=== PATIENT | male | born 1940 | race Caucasian/White ===

== ENCOUNTER 2017-01-09 16:38 | Emergency (ER) | payer MEDICARE, OTHER ==
[2012-12-25 12:46] VITALS: BMI 39.2
[2017-01-09 21:17] LABS: BASOPHILS 0.3 % (0.0-2.0); EOSINOPHILS 3.4 % (0-7); HEMATOCRIT 44.4 % (42.0-54.0); IMMATURE GRANULOCYTES 0.3 % (0-5); LYMPHOCYTES 24.1 % (15-50); MCH 32.8 pg (26.0-34.0); MCHC 33.8 g/dL (31.0-37.0); MCV 97.2 fL (80.0-100.0); MEAN PLATELET VOLUME 10.1 fL (7.4-10.4); MONOCYTES 6.9 % (2-11); RBC 4.57 10x6/uL (4.20-6.10); RDW 12.9 % (11.5-14.5); WBC 6.3 10x3/uL (4.8-10.8)
[2017-01-09 21:25] LABS: INR 0.95 (0.85-1.17); PROTIME 12.5 SECONDS (11.6-15.0)
[2017-01-09 21:26] LABS: PLATELET COUNT 138 10x3/uL (130-400)
[2017-01-09 21:49] LABS: ALBUMIN 3.6 g/dL (3.4-5.0); ALKALINE PHOSPHATASE 111 U/L (46-116); ALT (SGPT) 37 U/L (10-68); BILIRUBIN - TOTAL 0.73 mg/dL (0.2-1.3); CALC OSMOLALITY 287 mosm/kg (275-300); CALCIUM 8.2 mg/dL (8.5-10.1); CARBON DIOXIDE 29.5 mmol/L (21.0-32.0); CHLORIDE - SERUM 103 mmol/L (98-107); CREATININE - SERUM 0.8 mg/dL (0.6-1.3); GLUCOSE 133 mg/dL (74-106); POTASSIUM - SERUM 3.9 mmol/L (3.5-5.1); PROTEIN - SERUM 6.7 g/dL (6.4-8.2); SODIUM 141 mmol/L (136-145); UREA NITROGEN 26 mg/dL (7-18); eGFR NON AFRICAN AMERICAN > 90 mL/min (90-120)
[2017-01-09 21:58] LABS: PRO BNP 1001 pg/mL (0-450)
== END 2017-01-09 22:39 | disposition home or self-care (01) ==
LOC: D.ER 16:38
PROVIDERS: Emergency Medicine
DX: S52.042A Displaced fracture of coronoid process of left ulna, initial encounter for closed fracture (principal); X58.XXXA Exposure to other specified factors, initial encounter; Y93.89 Activity, other specified; Y92.89 Other specified places as the place of occurrence of the external cause; I80.8 Phlebitis and thrombophlebitis of other sites; I10 Essential (primary) hypertension; E11.9 Type 2 diabetes mellitus without complications; K21.9 Gastro-esophageal reflux disease without esophagitis

== ENCOUNTER 2019-03-21 09:18 | Inpatient (IN) | payer MEDICARE, OTHER ==
[~2019-03-21] VITALS: Ht 180.3 cm; Wt 129.7 kg
[2019-03-21 10:09] LABS: BASOPHILS 0.2 % (0-2); EOSINOPHILS 0.6 % (0-7); HEMATOCRIT 36.5 % (42.0-54.0); HEMOGLOBIN 12.4 g/dL (13.5-17.5); IMMATURE GRANULOCYTES 0.2 % (0-5); LYMPHOCYTES 10.3 % (15-50); MCH 32.3 pg (26.0-34.0); MCV 95.1 fL (80.0-100.0); MEAN PLATELET VOLUME 10.6 fL (7.4-10.4); MONOCYTES 5.9 % (2-11); NEUTROPHILS 82.8 % (40-80); PLATELET COUNT 129 10x3/uL (130-400); RBC 3.84 10x6/uL (4.20-6.10); RDW 14.2 % (11.5-14.5); WBC 9.7 10x3/uL (4.8-10.8)
[2019-03-21 10:22] LABS: ALBUMIN 3.2 g/dL (3.4-5.0); ALKALINE PHOSPHATASE 216 U/L (46-116); ALT (SGPT) 43 U/L (10-68); BILIRUBIN - TOTAL 1.29 mg/dL (0.2-1.3); CALC OSMOLALITY 288 mosm/kg (275-300); CALCIUM 9.6 mg/dL (8.5-10.1); CARBON DIOXIDE 20.9 mmol/L (21.0-32.0); CHLORIDE - SERUM 101 mmol/L (98-107); CREATININE - SERUM 2.4 mg/dL (0.6-1.3); GLUCOSE 150 mg/dL (74-106); POTASSIUM - SERUM 4.4 mmol/L (3.5-5.1); PROTEIN - SERUM 7.2 g/dL (6.4-8.2); SODIUM 135 mmol/L (136-145); UREA NITROGEN 56 mg/dL (7-18); eGFR NON AFRICAN AMERICAN 28 mL/min (90-120)
[2019-03-21 10:38] LABS: CKMB 1.4 U/L (0.0-3.6); CREATINE KINASE 45 UL (21-232); TROPONIN-I 0.054 ng/mL (0.000-0.060)
[2019-03-21 11:17] LABS: AMORPHOUS SEDIMENT <1+ /lpf (NONE SEEN); APPEARANCE SL CLDY (CLEAR); BACTERIA MANY /hpf (NONE SEEN); BILIRUBIN NEGATIVE (NEGATIVE); COLOR YELLOW (YELLOW); EPITHELIAL CELLS 0-5 /hpf (0-5); GLUCOSE NEGATIVE (NEGATIVE); HYALINE CAST 0-5 /lpf (NONE SEEN); KETONE NEGATIVE (NEGATIVE); MUCUS <1+ /lpf (NONE SEEN); NITRITE NEGATIVE (NEGATIVE); PROTEIN 2+ mg/dL (NEGATIVE); RED CELLS - URINE 0-5 /hpf (0-5); SPECIFIC GRAVITY 1.015 (1.005-1.020); WHITE CELLS - URINE OCC /hpf (0-5)
[2019-03-21 11:45] LABS: INR 1.22 (0.85-1.17); PROTIME 15.4 SECONDS (11.6-15.0)
--- NOTE | 2019-03-21 12:33 | NUR ---
EKG completed at 3590 03-21-19 by GENEVIEVE
[2019-03-21 12:46] VITALS: BP 100/67
--- NOTE | 2019-03-21 12:47 | NUR ---
pt NSR on monitor - HR improved and currently at 98
--- NOTE | 2019-03-21 14:21 | MORECARE ---
CASE MANAGEMENT DISCHARGE SUMMARY PATIENT: ANGEL RAI N UNIT: [id number] ADM DATE: 03/21/19 AGE: 78 : 38 SEX: M ROOM/BED: D.2124 AUTHOR: VANI ROJO PHYSICIAN: REFERRING PHYSICIAN: MATT NICHOLS MD DATE OF SERVICE: 03/21/19 Discharge Plan Patient Name: ANGEL RAI Facility: [facility]:[place] : 1940 Planned Disposition: Home Health Service Anticipated Discharge Date: 03/23/19 Discharge Date: Expected LOS: 2 Initial Reviewer: [email or web address] Initial Review Date: 03/21/2019 Generated: 03/21/19 3:21 pm DCPIA - Discharge Planning Initial Assessment Updated by [id number]: Maya Cunningham on 03/21/19 2:20 pm * Is the patient Alert and Oriented? Yes * How many steps to enter\exit or inside your home? * PCP Dr. Rodríguez * [facility] * Preadmission Environment Home with Family * ADLs Partial Dependent * Partial ADLs (Assistance needed) Ambulation Bathing Transfers * Equipment Rolling Walker * List name and contact numbers for known caregivers / representatives who currently or will assist patient after discharge: Kaci Nicole [facility] - [phone] Héctor Edward [facility] [phone] * Verbal permission to speak to the caregivers and representatives has been obtained from the patient. Yes * Community resources currently utilized Meals on Wheels * Additional services required to return to the preadmission environment? Yes * Can the patient safely return to the preadmission environment? Yes * Has this patient been hospitalized within the prior 30 days at any hospital? No Patient Name: ANGEL RAI Page 47771 at 1421 All edits/amendments must be made on the electronic document DICTATION DATE: 03/21/191420 DIAPER MACHINE TENDER: ADRIANA 03/21/19 142 RPT#: [id number] DC DATE: STATUS: ADM IN [facility] [address] [place] [address] END OF REPORT
--- NOTE | 2019-03-21 14:30 | MORECARE ---
CASE MANAGEMENT DISCHARGE SUMMARY PATIENT: ANGEL RAI UNIT: [id number] ADM DATE: 03/21/19 AGE: 78 : 38 SEX: M ROOM/BED: D.6750 AUTHOR: DARREL,DOC PHYSICIAN: REFERRING PHYSICIAN: MATT NICHOLS MD DATE OF SERVICE: 03/21/19 Discharge Plan Patient Name: ANGEL RAI Facility: [facility]:[place] : 1940 Planned Disposition: Home Health Service Anticipated Discharge Date: 03/23/19 Discharge Date: Expected LOS: 2 Initial Reviewer: [email or web address] Initial Review Date: 03/21/2019 Generated: 03/21/19 3:30 pm DCP- Discharge Planning Updated by [email or web address]: Maya Cunningham on 03/21/19 1:[address] Patient Name: ANGEL RAI Admission Status: ER Accout number: [id number] Admission Date: 03-21-2019 : 1940 Admission Diagnosis: Attending: MATT DEGROOT Current LOS: 1 Anticipated DC Date: 03-23-2019 Planned Disposition: Home Health Service Primary Insurance: MEDICARE A & B Discharge Planning Comments: CM met with patient and his daughter, Kaci Nicole, to complete initial dc planning assessment. CM educated patient on the CM role and verbal consent given by patient to complete assessment. CM verified patient's address, phone number, and emergency contact phone numbers. Patient lives at home with his grandson. He reports he has required increased assistance june past few weeks. Pateint's daughter stated she felt like the patient would benefit from home health services. List of HH Agencies provided to the patient and his daughter. MONA form signed by patient's daughter for [facility] as their first choice and [facility] as their 2nd choice. Signed form placed in chart and signed form given to patient. Informed both patient and his daughter that a order from MD will have to be given for cm to arrange HH at [place]. At discharge patient plans to return home and feels this is a safe discharge. Patient denied further known discharge needs at this time. . Patient reports his daughter or his grandson will transport him home at time of discharge.CM will continue to follow and will assist as needed with dc plans/needs. Container Maker: Maya Cunningham RN, [facility] DCPIA - Discharge Planning Initial Assessment Updated by [email or web address]: Maya Cunningham on 03/21/19 2:20 pm * Is the patient Alert and Oriented? Yes * How many steps to enter\exit or inside your home? * PCP Dr. Rodríguez * Pharmacy [facility] [address] * Preadmission Environment Home with Family * ADLs Partial Dependent * Partial ADLs (Assistance needed) Ambulation Bathing Transfers * Equipment Rolling Walker * List name and contact numbers for known caregivers / representatives who currently or will assist patient after discharge: Kaci Nicole [facility] - [phone] H[facility]ctor [facility] - [phone] * Verbal permission to speak to the caregivers and representatives has been obtained from the patient. Yes * Community resources currently utilized Meals on Wheels * Additional services required to return to the preadmission environment? Yes * Can the patient safely return to the preadmission environment? Yes * Has this patient been hospitalized within the prior 30 days at any hospital? No Last DP export: 03/21/19 1:21 p Patient Name: ANGEL RAI Page [phone] at 1430 All edits/amendments must be made on the electronic document DICTATION DATE: 03/21/191428 CAB WORKER: ADRIANA 03/21/191428 RPT#: [id number] DC DATE: STATUS: ADM IN [facility] [address] [place] [address] END OF REPORT
--- NOTE | 2019-03-21 15:00 | NUR ---
NEW PATIENT ADMIT FROM ER VIA HOSPITAL BED AND ER PERSONNEL. DTR AT BEDSIDE. PATIENT IS AWAKE, ALERT AND ORIENTED X 4. IV 20 G TO RT FA SL AND LT UPPER ARM 22 G SL. O2 PER NC AT 2.5L/MIN. ADMISSION HISTORY AND ADMISSION ASSESSMENT COMPLETED. PATIENT HAS LARGE REDDENED AREA TO GROIN AND STAGE 2 X 2 PRESSURE ULCERS TO COCCYX. PATIENT DENIES ANY NEEDS OR PAIN. WILL CONTINUE WITH PLAN OF CARE. SR UP X 2 BED IN LOW POSITION AND CALL LIGHT IN REACH.
[2019-03-21 15:02] VITALS: BP 110/70; BMI 40.8
[2019-03-21 16:30] VITALS: BP 97/59
[2019-03-21 17:52] LABS: % SATURATION 20 % (15-55); IRON 46 ug/dl (35-150); TOTAL IRON BIND CAPACITY 230 ug/dl (260-445); UNSAT IRON BIND CAPACITY 184 ug/dl (150-375)
--- NOTE | 2019-03-21 18:26 | NUR ---
PATIENT HAD COMPLETE BED BATH AND LINEN CHANGE. PATIENT UP TO BR WITH ASST. PATIENT TOLERATED WELL. PATIENT RESTING COMFORTABLY. PATIENT DENIES ANY NEEDS OR PAIN. WILL CONTINUE TO MONITOR. SR UP X 2 BED IN LOW POSTION AND CALL LIGHT IN REACH.
[2019-03-21 20:00] VITALS: BP 99/50
[2019-03-22] VITALS: BP 97/55
--- NOTE | 2019-03-22 02:06 | NUR ---
UP WITH ASSIST TO BSC.
[2019-03-22 04:00] VITALS: BP 100/63
[2019-03-22 07:15] LABS: BASOPHILS 0.2 % (0-2); EOSINOPHILS 1.5 % (0-7); HEMATOCRIT 34.1 % (42.0-54.0); HEMOGLOBIN 11.4 g/dL (13.5-17.5); IMMATURE GRANULOCYTES 0.3 % (0-5); LYMPHOCYTES 14.8 % (15-50); MCH 32.1 pg (26.0-34.0); MCHC 33.4 g/dL (31.0-37.0); MCV 96.1 fL (80.0-100.0); MONOCYTES 6.8 % (2-11); NEUTROPHILS 76.4 % (40-80); PLATELET COUNT 121 10x3/uL (130-400); RBC 3.55 10x6/uL (4.20-6.10); RDW 14.4 % (11.5-14.5); WBC 9.3 10x3/uL (4.8-10.8)
--- NOTE | 2019-03-22 07:31 | NUR ---
ASSESSMENT DONE. DENIES NEEDS.
[2019-03-22 07:36] VITALS: BP 107/66
[2019-03-22 07:49] LABS: ALBUMIN 2.8 g/dL (3.4-5.0); ANION GAP 15.6 mmol/L (8-16); BILIRUBIN - TOTAL 0.92 mg/dL (0.2-1.3); CALCIUM 9.1 mg/dL (8.5-10.1); CARBON DIOXIDE 21.8 mmol/L (21.0-32.0); CREATININE - SERUM 2.4 mg/dL (0.6-1.3); MAGNESIUM - SERUM 1.7 mg/dL (1.8-2.4); POTASSIUM - SERUM 4.4 mmol/L (3.5-5.1); PROTEIN - SERUM 6.5 g/dL (6.4-8.2)
--- NOTE | 2019-03-22 09:53 | NUR ---
I have reviewed this patient and I concur with the Shift Assessment completed by the Licensed Practical Nurse today this shift.
[2019-03-22 10:35] VITALS: BMI 39.3
[2019-03-22 11:24] VITALS: BP 109/64
--- NOTE | 2019-03-22 13:21 | NUR ---
Pt arrived with 2 - stage 2 pressure injuries on coccyx/buttocks. Left measures 2cm x 2cm and right 1.5cm x 1.5cm. There is an open area on #2 toe on right foot with scaly patch of dry skin on #4 toe. Bilateral lower extremities are discolored, edematous and scaly. Heels are intact but boggy. Recommendations: Mepilex sacral dressing to bottom Antibiotic ointment to #2 toe Turn/reposition every 2 hours Float heels Protect bony prominences Wound care will continue monitoring.
--- NOTE | 2019-03-22 14:00 | NUR ---
16F FOLY CATH PLACED FOR I&O PER DR ORDERS.
[2019-03-22 14:07] VITALS: Ht 180.3 cm; Wt 129.7 kg
--- NOTE | 2019-03-22 15:13 | NUR ---
SCDS APPLIED TO PT. BILATERALLY ORDERED.
[2019-03-22 15:39] VITALS: BP 98/69
--- NOTE | 2019-03-22 17:38 | NUR ---
WITHOUT CHANGES OR DISTRESS NOTED AT THIS TIME. DENIES NEEDS
[2019-03-22 20:00] VITALS: BP 97/62
--- NOTE | 2019-03-22 20:01 | NUR ---
INITIAL ROUNDS COMPLETED AT 1909 HRS. PT RESTING WITH EYES CLOSED. RESP EVEN AND REGULAR. ASSESSMENT COMPLETED AT 1939 HRS. CAF PER CM HR 73. PT ALERT AND ORIENTED TO PERSON, PLACE AND TIME. LINDSAY. IV TO L HAND WITH CARDIZEM DRIP AT 10MG.HE. IV PATENT. IV TO RFA SL. LUNGS DIMINISHED IN BASES BILAT. LINDSAY. MEPILEX TO BILAT BUTTOCKS. 2-3+ PITTING EDEMA NOTED TO BILAT LOWER EXTREMITIES. LOWER LEGS RED. SCD'S IN USE. SCD'S REMOVED AND SKIN INSPECTED. NO BREAKDOWN NOTED. RED AREA NOTED TO 2ND TOE OF R FOOT. MONTILLA DRAINING SMALL AMOUNTS OF YELLOW URINE. SR UP X2, CALL LIGHT WITHIN REACH.
--- NOTE | 2019-03-22 20:58 | NUR ---
VSS. PM MEDS APPLIED PER ORDERS. SR UP X2, CALL LIGHT WITHIN REACH.
--- NOTE | 2019-03-22 22:00 | NUR ---
PT RESTING WITH EYES CLOSED. RESP EVEN AND REGULAR. SR UP X2, CALL LIGHT WITHIN REACH.
--- NOTE | 2019-03-22 23:47 | NUR ---
PT RESITNG WITH EYES CLOSED. RESP EVEN AND REGULAR. SR UP X2,CALL LIGHT WITHIN REACH AND BED ALARM ON.
[2019-03-23] VITALS: BP 103/63
--- NOTE | 2019-03-23 00:19 | NUR ---
PT TURNED ON TO L SIDE. SR UP X2, CALL LIGHT WITHIN REACH.
--- NOTE | 2019-03-23 02:15 | NUR ---
PT RESTING WITH EYES CLOSED. RESP EVEN AND REGULAR. SR UP X2, CALL LIGHT WITHIN REACH.
[2019-03-23 04:00] VITALS: BP 114/65
[2019-03-23 05:55] LABS: BASOPHILS 0.1 % (0-2); EOSINOPHILS 3.1 % (0-7); HEMATOCRIT 33.2 % (42.0-54.0); IMMATURE GRANULOCYTES 0.5 % (0-5); LYMPHOCYTES 18.3 % (15-50); MCH 31.7 pg (26.0-34.0); MCHC 33.1 g/dL (31.0-37.0); MCV 95.7 fL (80.0-100.0); MEAN PLATELET VOLUME 10.8 fL (7.4-10.4); MONOCYTES 7.2 % (2-11); NEUTROPHILS 70.8 % (40-80); PLATELET COUNT 119 10x3/uL (130-400); RBC 3.47 10x6/uL (4.20-6.10); RDW 14.1 % (11.5-14.5); WBC 8.1 10x3/uL (4.8-10.8)
--- NOTE | 2019-03-23 06:02 | NUR ---
VSS THROUGHOUT NIGHT. CAF PER CM. PT DENIED ANY DISCOMFORT. NEEDS MET;WILL CONTINUE TO MONITOR.
[2019-03-23 06:18] LABS: ALBUMIN 2.6 g/dL (3.4-5.0); ANION GAP 15.8 mmol/L (8-16); BILIRUBIN - TOTAL 0.83 mg/dL (0.2-1.3); CARBON DIOXIDE 22.4 mmol/L (21.0-32.0); CREATININE - SERUM 2.1 mg/dL (0.6-1.3); MAGNESIUM - SERUM 1.8 mg/dL (1.8-2.4); POTASSIUM - SERUM 4.2 mmol/L (3.5-5.1); PROTEIN - SERUM 6.5 g/dL (6.4-8.2)
--- NOTE | 2019-03-23 07:10 | NUR ---
REPORT RECIEVED FROM METAL DRESSER AND PATIENT CARE ASSUMED. PATIENT LAYING IN BED ON BACK WITH EYES CLOSED AND BREATHING EVENLY. VSS. WILL CONTINUE WITH PLAN OF CARE. SR UP X 2 BED IN LOW POSITION AND CALL LIGHT IN REACH.
[2019-03-23 08:00] VITALS: BP 128/71
--- NOTE | 2019-03-23 10:00 | NUR ---
PATIENT IS STABLE AND VSS. ASSESSMENT COMPLETED. PATIENT DENIES ANY NEEDS OR PAIN. DTR AT BEDSIDE. WILL CONTINUE TO MONITOR. SR UP X 2 BED IN LOW POSITION AND CALL LIGHT IN REACH.
[2019-03-23 12:00] VITALS: BP 128/77
--- NOTE | 2019-03-23 14:08 | NUR ---
PATIENT UP TO BS COMMODE WITH TWO PERSON ASSIST. PATIENT HAD MODERATE AMT BROWN, FORMED BM. PATIENT CLEANED AND CALMOSEPTINE APPLIED TO BUTTOCKS. BED LINENS CHANGED. PATIENT BACK TO BED AND RESTING COMFORTABLY. WILL CONTINUE TO MONITOR. SR UP X 2 BED IN LOW POSITION AND CALL LIGHT IN REACH.
[2019-03-23 14:09] LABS: FOLATE (FOLIC ACID) - SERUM >20.0 ng/mL (>3.0)
[2019-03-23 16:30] VITALS: BP 109/70
[2019-03-23 20:00] VITALS: BP 133/67
--- NOTE | 2019-03-23 21:27 | NUR ---
INITIAL ROUNDS COMPLETED AT 1915 HRS. PT DENIED ANY DISCOMFORT. ASESSMENT COMPLETED AT 1945HRS. VSS. CAF PER CM HR 79. O2 2LNC LUNGS DIMINISHED IN BASES BILAT. IV TO L HAND WITH CARDIEM AT 10MG/HR (10CC). IV PATENT. IV TO RFA SL. ABD LARGE WITH ACTIVE BS NOTED. L HAND WITH 1+ EDEMA. IV CHANGED TO RFA. 1-2+ PITTING EDEMA TO BILAT LOWER LEGS. SCD'S REMOVED AND SKIN INSPECTED. NO BREAKDOWN NOTED. LOWER LEGS RED IN COLOR. MONTILLA DRAINING DARK COLORED URINE. MEPILEX NOTED TO COCCYX/BUTTOCKS CLEAN, DRY AND INTACT. RED AREAS NOTED UNDER ABD FOLDS AND GROIN AREA. PM MEDS GIVEN. PT THEN ASSSITED TO BSC. BED LINENS CHANGED AT THAT TIME. WILL CONTINUE TO MONITOR. CALL LIGHT WITHIN REACH.
--- NOTE | 2019-03-23 21:55 | NUR ---
PT HAD SMALL BM. BED BATH DONE. PT STATED HE FELT MUCH IMPROVED. REPOSITIONED IN BED FOR COMFORT. SR UP X2,CALL LIGHT WITHIN REACH AND BED ALARM ON.
--- NOTE | 2019-03-23 23:52 | NUR ---
PT AWAKE; DENIES ANY DISCOMFORT. SR UP X2, CALL LIGHT WITHIN REACH.
[2019-03-24] VITALS (7 sets, daily range): BP systolic 118–133; BP diastolic 67–79
--- NOTE | 2019-03-24 03:17 | NUR ---
PT RESTING WITH EYES CLOSED. RESP EVEN AND REGULAR. SR UP X2, CALL LIGHT WITHIN REACH.
[2019-03-24 05:47] LABS: BASOPHILS 0.1 % (0-2); EOSINOPHILS 3.6 % (0-7); HEMATOCRIT 34.1 % (42.0-54.0); HEMOGLOBIN 11.3 g/dL (13.5-17.5); IMMATURE GRANULOCYTES 0.6 % (0-5); LYMPHOCYTES 17.1 % (15-50); MCH 31.7 pg (26.0-34.0); MCHC 33.1 g/dL (31.0-37.0); MCV 95.5 fL (80.0-100.0); MEAN PLATELET VOLUME 10.7 fL (7.4-10.4); MONOCYTES 7.5 % (2-11); NEUTROPHILS 71.1 % (40-80); PLATELET COUNT 122 10x3/uL (130-400); RBC 3.57 10x6/uL (4.20-6.10); RDW 13.9 % (11.5-14.5); WBC 7.9 10x3/uL (4.8-10.8)
[2019-03-24 06:21] LABS: ALBUMIN 2.5 g/dL (3.4-5.0); ANION GAP 15.2 mmol/L (8-16); BILIRUBIN - TOTAL 0.8 mg/dL (0.2-1.3); CALCIUM 8.6 mg/dL (8.5-10.1); CARBON DIOXIDE 24.4 mmol/L (21.0-32.0); CREATININE - SERUM 1.6 mg/dL (0.6-1.3); MAGNESIUM - SERUM 1.7 mg/dL (1.8-2.4); POTASSIUM - SERUM 3.6 mmol/L (3.5-5.1); PROTEIN - SERUM 6.5 g/dL (6.4-8.2)
--- NOTE | 2019-03-24 06:45 | NUR ---
VSS THROUGHOUT NIGHT. CAF PER CM. PT DENIED ANY DISCOMFORT. NEEDS MET; WILL CONTINUE TO MONITOR.
--- NOTE | 2019-03-24 10:00 | NUR ---
ALERT AND ORIENTED X4. SITTING UP IN BED. CARDIZEM DRIP DISCONTINUED PER ORDER. CARDIZEM 60mg PO ADMINISTERED ORDERED. MONTILLA DRAINING AT BEDSIDE. CLOTS SEEN IN MONTILLA TUBING. MONTILLA PATENT. DENIES ANY NEEDS AT THIS TIME. CONTINUE PLAN OF CARE AND SAFETY PRECAUTIONS. CONTROLLED AFIB ON TELEMETRY.
--- NOTE | 2019-03-24 17:21 | NUR ---
ALERT AND ORIENTED X4. ASSIST BACK TO BED FROM BEDSIDE COMMODE. MEPOLEX DRESSING ON BUTTOCKS CHANGED. CONTROLLED AFIB ON TELEMETRY. DENIES ANY OTHER NEEDS. CONTINUE PLAN OF CARE AND SAFETY PRECAUTIONS.
--- NOTE | 2019-03-24 19:36 | NUR ---
RECEIVED REPORT, WILL ASSUME CARE OF PT, DENIES ANY NEEDS AT THIS TIME, BED IS LOW, SRX2, CALL LIGHT IN REACH, WILL CONTINUE PLAN OF CARE
--- NOTE | 2019-03-25 00:04 | NUR ---
PT ASKING FOR LIGHT TO BE TURNED OUT
--- NOTE | 2019-03-25 01:40 | NUR ---
I have reviewed this patient and I concur with the Shift Assessment completed by the Licensed Practical Nurse today this shift.
[2019-03-25 03:45] VITALS: BP 129/81
[2019-03-25 05:33] LABS: BASOPHILS 0.1 % (0-2); EOSINOPHILS 3.9 % (0-7); HEMOGLOBIN 11.5 g/dL (13.5-17.5); LYMPHOCYTES 17.6 % (15-50); MCH 31.9 pg (26.0-34.0); MCHC 33.8 g/dL (31.0-37.0); MCV 94.4 fL (80.0-100.0); MONOCYTES 5.9 % (2-11); NEUTROPHILS 71.5 % (40-80); PLATELET COUNT 131 10x3/uL (130-400); RDW 13.9 % (11.5-14.5); WBC 7.1 10x3/uL (4.8-10.8)
[2019-03-25 05:41] LABS: ALBUMIN 2.6 g/dL (3.4-5.0); ANION GAP 12.7 mmol/L (8-16); BILIRUBIN - TOTAL 0.77 mg/dL (0.2-1.3); CARBON DIOXIDE 26.8 mmol/L (21.0-32.0); CREATININE - SERUM 1.3 mg/dL (0.6-1.3); MAGNESIUM - SERUM 1.7 mg/dL (1.8-2.4); POTASSIUM - SERUM 3.5 mmol/L (3.5-5.1); PROTEIN - SERUM 6.7 g/dL (6.4-8.2)
[2019-03-25 07:56] VITALS: BP 144/71
--- NOTE | 2019-03-25 10:07 | CN ---
PATIENT NAME:ANGEL RAI MEDICAL RECORD: [id number] : [birth year] LOCATION:D. D.2124 ADMIT DATE: 03/21/19 ACCOUNT: [id number] CONSULTING PHYSICIAN: NEERU FARNSWORTH MD REFERRING PHYSICIAN: MTAT NICHOLS MD DATE OF CONSULTATION: 03/24/2019 HISTORY OF PRESENT ILLNESS: An 78-year-old gentleman with history of atrial arrhythmias and atrial fibrillation, not felt to be NOAC candidate. He has history of diastolic dysfunction. Admitted with malaise, fatigue, and skin breakdown in the coccyx area. Noted to be in atrial flutter with rapid ventricular response. We are asked to see him concerning his cardiovascular status. PAST MEDICAL HISTORY: Includes; 1. History of hypertension. 2. Hyperlipidemia. 3. Obstructive sleep apnea. 4. Atrial flutter/fibrillation. ALLERGIES: EGGS. PHYSICAL EXAMINATION: GENERAL: Elderly gentleman, in no acute distress, appears stated age. VITAL SIGNS: Blood pressure 133/77. Pulse currently 70 and regular. HEENT: Normocephalic and atraumatic. NECK: No JVD or bruit. HEART: Irregular. Rate is controlled. II/ systolic ejection murmur. LUNGS: Fairly good air excursion. ABDOMEN: Soft and nontender. EXTREMITIES: Pulses are 1+. There is no edema. IMPRESSION: Atrial fibrillation. Rates are much improved after Cardizem has been started. We will start this orally. Echocardiogram shows preserved LV systolic function. Given history of skin breakdown, lack of mobility, etc., agree not a candidate for NOAC in [place]. Thank you for the consultation. TRANSINT:[id number] Voice Confirmation ID: [id number] DOCUMENT ID: [id number] NEERU FARNSWORTH MD at 1007 CC: [id number] DICTATION DATE: 03/24/19 0955 BRADLEY LINEBACKER CREWMEMBER: 03/24/19 1642 ADM IN [place] [id number] [place] [address]
[2019-03-25] MEDS ORDERED: ZYLOPRIM300 MG PO (10:33)
[2019-03-25] MEDS ORDERED: GLUCOPHAGE850 MG PO (10:34)
[2019-03-25] MEDS ORDERED: LIPITOR40 MG PO (10:34)
[2019-03-25] MEDS ORDERED: GLUCOPHAGE500 MG PO (10:35)
[2019-03-25] MEDS ORDERED: K-TAB10 MEQ PO (10:35)
[2019-03-25] MEDS ORDERED: OMEPRAZOLE40 MG PO (10:35)
[2019-03-25] MEDS ORDERED: ATIVAN0.5 MG PO (10:36)
[2019-03-25 11:41] VITALS: BP 136/70
--- NOTE | 2019-03-25 12:19 | NUR ---
Rehab Prescreening Consult recieved and the chart has been reviewed. He is a good ARU candidate when he is able and willing to participate in the required 3 hrs of therapy daily that Medicare requires. Rehab will continue to follow. Patricia Becker RN Clinical Liaison, Rehab
--- NOTE | 2019-03-25 15:48 | NUR ---
ALERT AND ORIENTED X4. OOB AMBULATING IN [place] WITH WALKER ASSISTED BY PHYSICAL THERAPY. MONTILLA DRAINING SECURED DRAINING BY GRAVITY. CONTROLLED AFIB ON TELEMETRY. DENIES ANY NEEDS AT THIS TIME. CONTINUE PLAN OF CARE AND SAFETY PRECAUTIONS.
[2019-03-25 16:21] VITALS: BP 137/70
--- NOTE | 2019-03-25 17:00 | NUR ---
OT NOTE: PT COMPLETED BED MOB WITH MOD A. PT COMPLETED EOB SITTING WITH CGA. PT COMPLETED ADL MOB WITH MIN A WITH RW. PT COMPLETED GROOMING WITH MIN A. THANK YOU, STAN FATIMA
--- NOTE | 2019-03-25 19:32 | NUR ---
ASSESSMENT COMPLETE, PT A&O. RESPERATIONS EVEN ON O2 AT 2 LITERS VIA NC. SL NOTED TO BILATERAL HANDS. MEPILEX TO COCCYX, C/D/I. RED RASH NOTED TO ABD FOLDS AND GROIN. MONTILLA DRAINING TO GRAVITY. PT DENIES PAIN OR NEEDS, BED LOW, CL IN REACH.
--- NOTE | 2019-03-25 21:15 | NUR ---
HS MEDS GIVEN WITH FRESH ICE WATER. UP WITH ASSIST TO BSC.
[2019-03-25 21:24] VITALS: BP 137/78
[2019-03-26 00:36] VITALS: BP 113/70
--- NOTE | 2019-03-26 02:37 | NUR ---
RESTING WITH EYES CLOSED, RESPERATIONS EVEN, NO S/S DISTRESS NOTED.
--- NOTE | 2019-03-26 05:27 | NUR ---
I have reviewed this patient and I concur with the Shift Assessment completed by the Licensed Practical Nurse today this shift.
[2019-03-26 05:37] VITALS: BP 141/75
[2019-03-26 05:41] LABS: BASOPHILS 0.1 % (0-2); EOSINOPHILS 3.9 % (0-7); HEMATOCRIT 33.9 % (42.0-54.0); HEMOGLOBIN 11.7 g/dL (13.5-17.5); IMMATURE GRANULOCYTES 0.9 % (0-5); MCH 32.7 pg (26.0-34.0); MCHC 34.5 g/dL (31.0-37.0); MCV 94.7 fL (80.0-100.0); MEAN PLATELET VOLUME 10.1 fL (7.4-10.4); MONOCYTES 5.7 % (2-11); NEUTROPHILS 71.4 % (40-80); PLATELET COUNT 140 10x3/uL (130-400); RBC 3.58 10x6/uL (4.20-6.10); RDW 14.1 % (11.5-14.5); WBC 7.4 10x3/uL (4.8-10.8)
[2019-03-26 05:57] LABS: ALBUMIN 2.5 g/dL (3.4-5.0); ANION GAP 10.4 mmol/L (8-16); BILIRUBIN - TOTAL 0.74 mg/dL (0.2-1.3); CALCIUM 8.7 mg/dL (8.5-10.1); CARBON DIOXIDE 28.9 mmol/L (21.0-32.0); CREATININE - SERUM 1.1 mg/dL (0.6-1.3); MAGNESIUM - SERUM 1.7 mg/dL (1.8-2.4); POTASSIUM - SERUM 3.3 mmol/L (3.5-5.1); PROTEIN - SERUM 6.5 g/dL (6.4-8.2)
--- NOTE | 2019-03-26 07:32 | NUR ---
MORNING ROUNDS MADE. PT SITTING UP IN BED. STATES THAT HE DOESNT FEEL GREAT THIS AM. A/O X 4. MONTILLA IN PLACE. DRAINING BY GRAVITY. 2L O2 VIA NC. L HAND SL. R FA SL. BLE GENERALIZED EDEMA NOTED. BREATHING EVEN AND UNLABORED. NO FURTHER CONCERNS AT THIS TIME. FALL PRECAUTIONS IN PLACE. BED LOWERED AND LOCKED. CL IN REACH. WILL CTM.
[2019-03-26 08:13] VITALS: BP 145/74
--- NOTE | 2019-03-26 08:46 | NUR ---
VITALS STABLE. MEDS TAKEN WITHOUT DIFFICULTY. CEDRICK APPLIED TO R FOOT. NYSTATIN APPLIED TO ABD FOLDS. BEKAH APPLED TO BUTTOCKS. LASIX GIVEN TO IV IN R FA, PATENT, NO REDNESS OR EDEMA NOTED, DRSG C/D/I. IV SL AFTER USE. BREAKFAST TRAY PROVIDED AFTER MEDS. NO FURTHER CONERNS AT THIS TIME. BED LOWERED AND LOCKED. CL IN REACH. YELLOW GOWN ON. NON SKID SOCKS ON. SCD ON. WILL CTM.
--- NOTE | 2019-03-26 09:26 | NUR ---
I have reviewed this patient and I concur with the Shift Assessment completed by the Licensed Practical Nurse today this shift.
--- NOTE | 2019-03-26 11:15 | NUR ---
PT ASSISTED UP TO BEDSIDE COMMODE. GAIT WEAK. CL IN REACH.
[2019-03-26 11:36] VITALS: BP 135/77
--- NOTE | 2019-03-26 12:47 | MORECARE ---
CASE MANAGEMENT DISCHARGE SUMMARY PATIENT: ANGEL RAI UNIT: [id number] ADM DATE: 03/21/19 AGE: 78 : 38 SEX: M ROOM/BED: D.2124 AUTHOR: VANI ROJO PHYSICIAN: REFERRING PHYSICIAN: MATT NICHOLS MD DATE OF SERVICE: 03/26/19 Discharge Plan Patient Name: ANGEL RAI Facility: [facility]:[place] : 1940 Planned Disposition: Inpatient Rehab Anticipated Discharge Date: 03/26/19 Discharge Date: Expected LOS: 5 Initial Reviewer: [email or web address] Initial Review Date: 03/21/2019 Generated: 03/26/19 1:47 pm Comments DCP- Discharge Planning Updated by [email or web address]: Sergio Schmitz on 03/26/19 11:[address] Patient Name: ANEGL RAI Encounter No: [id number] : 1940 Primary Insurance: MEDICARE A & B Anticipated DC Date: 03-26-2019 Planned Disposition: Inpatient Rehab External Planned Provider: : DCP follow-up note: ORDER FOR INPATIENT REHAB PRESCREENING RECEIVED. CM MET WITH PT IN ROOM TO DISCUSS DISCHARGE NEEDS AND PLANNING. CM DISCUSSED AVAILABILITY OF HOME HEALTH, REHAB SERVICES AND MEDICAL EQUIPMENT. CM DISCUSSED REHAB PROVIDERS, LOCATIONS AND SERVICES. PT HAS DECIDED HE WANTS TO HAVE REHAB AT [place] PRIOR TO GOING HOME. PT REPORTS HE HAS BEEN TO REHAB AT [place] IN THE PAST AND IS FAMILIAR WITH THE PROGRAM. IMPORTANT MESSAGE FROM MEDICARE PROVIDED AND EXPLAINED. CM WAITING INPATIENT REHAB PRESCREEN RESULT AND ADMISSION DETERMINATION FROM [facility] INPATIENT REHAB. CM TO FOLLOW AND ASSIST NEEDED. UDAY Lucas DCP- Discharge Planning Updated by [id number]: Maya Cunningham on 03/21/19 1:[address] Patient Name: ANGEL RAI Admission Status: ER Accout number: [id number] Admission Date: 03-21-2019 : 1940 Admission Diagnosis: Attending: MATT DEGROOT Current LOS: 1 Anticipated DC Date: 03-23-2019 Planned Disposition: Home Health Service Primary Insurance: MEDICARE A & B Discharge Planning Comments: CM met with patient and his daughter, Kaci iNcole, to complete initial dc planning assessment. CM educated patient on the CM role and verbal consent given by patient to complete assessment. CM verified patient's address, phone number, and emergency contact phone numbers. Patient lives at home with his grandson. He reports he has required increased assistance june past few weeks. Pateint's daughter stated she felt like the patient would benefit from home health services. List of HH Agencies provided to the patient and his daughter. MONA form signed by patient's daughter for [facility] as their first choice and [facility] as their 2nd choice. Signed form placed in chart and signed form given to patient. Informed both patient and his daughter that a order from MD will have to be given for cm to arrange HH at [place]. At discharge patient plans to return home and feels this is a safe discharge. Patient denied further known discharge needs at this time. . Patient reports his daughter or his grandson will transport him home at time of discharge.CM will continue to follow and will assist as needed with dc plans/needs. Commercial Cleaner: Maya Cunningham RN, [facility] DCPIA - Discharge Planning Initial Assessment Updated by [id number]: Maya Cunningham on 03/21/19 2:20 pm * Is the patient Alert and Oriented? Yes * How many steps to enter\exit or inside your home? * PCP Dr. Rodríguez * Pharmacy [facility] on [address] * Preadmission Environment Home with Family * ADLs Partial Dependent * Partial ADLs (Assistance needed) Ambulation Bathing Transfers * Equipment Rolling Walker * List name and contact numbers for known caregivers / representatives who currently or will assist patient after discharge: Kaci Nicole [facility] - [phone] Héctor Edward [facility] - [phone] * Verbal permission to speak to the caregivers and representatives has been obtained from the patient. Yes * Community resources currently utilized Meals on Wheels * Additional services required to return to the preadmission environment? Yes * Can the patient safely return to the preadmission environment? Yes * Has this patient been hospitalized within the prior 30 days at any hospital? No Coverage Notice Reviewer: [id number] Maureen Schmitz Notice Issued Date-Time: 03/26/2019 8:25 Notice Type: IM Discharge Notice Notice Delivered To: Patient Relationship to Patient: Industrial Engineering Manager Name: Delivery Method: HAND - Hand Delivered Toma Days: Prior Verbal Notification: Recipient Understood Notice: Yes Recipient Signature: Yes Med Rec Note Co-signed by Attending: Coverage Notice Comment: Last DP export: 03/21/19 1:30 p Patient Name: ANGEL RAI Page 65048 at 1247 All edits/amendments must be made on the electronic document DICTATION DATE: 03/26/191245 GUEST RELATIONS COORDINATOR: ADRIANA 03/26/19 1246 RPT#: [id number] DC DATE: STATUS: ADM IN [facility] [address] [place] [address] END OF REPORT
[2019-03-26 15:30] VITALS: BP 125/72
--- NOTE | 2019-03-26 15:37 | NUR ---
OT NOTE: PT SITTING UP IN BED ASLEEP WITH TRAY IN FRONT OF HIM. WOKE UP PT AND HE WAS ABLE TO EAT A VERY SMALL AMOUNT WITH SET UP. PT STATED THAT HE COULD NOT EAT MUCH DUE TO FEELING BLOATED. ASSISTED PT TO TOILET WITH MOD ASSIST. MAX ASSIST FOR PERINEAL CARE. MOD ASSIST FOR TRANSFER BACK TO BED. SET UP FOR HAND AND FACE WASHING WITH CLOTH. BELA BRANTLEY, OTR/L
--- NOTE | 2019-03-26 16:20 | NUR ---
OT NOTE: PT COMPLETED BED MOB WITH MOD A. PT COMPLETED ADL MOB WITH MOD A. PT COMPLETED TOILETING AND CLOTHING MANAGEMENT WITH MAX A. THANK YOU, STAN FATIMA
--- NOTE | 2019-03-26 20:18 | NUR ---
HS MEDS GIVEN WITH FRESH ICE WATER. PT DENIES PAIN OR NEEDS, BED LOW, CL IN REACH.
[2019-03-26 20:28] VITALS: BP 137/71
--- NOTE | 2019-03-26 23:00 | NUR ---
UP WITH ASSIST TO BSC.
[2019-03-27 00:14] VITALS: BP 136/82
[2019-03-27 04:46] VITALS: BP 141/79
[2019-03-27 06:09] LABS: BASOPHILS 0.3 % (0-2); EOSINOPHILS 3.1 % (0-7); HEMATOCRIT 35.2 % (42.0-54.0); HEMOGLOBIN 11.7 g/dL (13.5-17.5); IMMATURE GRANULOCYTES 0.6 % (0-5); LYMPHOCYTES 15.6 % (15-50); MCH 31.4 pg (26.0-34.0); MCHC 33.2 g/dL (31.0-37.0); MCV 94.4 fL (80.0-100.0); MEAN PLATELET VOLUME 10.5 fL (7.4-10.4); MONOCYTES 5.8 % (2-11); NEUTROPHILS 74.6 % (40-80); PLATELET COUNT 142 10x3/uL (130-400); RBC 3.73 10x6/uL (4.20-6.10); RDW 14.3 % (11.5-14.5); WBC 7.8 10x3/uL (4.8-10.8)
[2019-03-27 06:33] LABS: ALBUMIN 2.5 g/dL (3.4-5.0); ALKALINE PHOSPHATASE 235 U/L (46-116); ALT (SGPT) 66 U/L (10-68); BILIRUBIN - TOTAL 0.73 mg/dL (0.2-1.3); CALC OSMOLALITY 284 mosm/kg (275-300); CALCIUM 9.6 mg/dL (8.5-10.1); CARBON DIOXIDE 30.1 mmol/L (21.0-32.0); CHLORIDE - SERUM 103 mmol/L (98-107); GLUCOSE 116 mg/dL (74-106); POTASSIUM - SERUM 3.2 mmol/L (3.5-5.1); PROTEIN - SERUM 6.5 g/dL (6.4-8.2); SODIUM 140 mmol/L (136-145); UREA NITROGEN 26 mg/dL (7-18); eGFR NON AFRICAN AMERICAN 76 mL/min (90-120)
--- NOTE | 2019-03-27 07:51 | NUR ---
ASSESSMENT DONE. DENIES NEEDS.
[2019-03-27 08:15] VITALS: BP 151/78
--- NOTE | 2019-03-27 09:07 | NUR ---
I have reviewed this patient and I concur with the Shift Assessment completed by the Licensed Practical Nurse today this shift.
[2019-03-27] MEDS ORDERED: CARDIZEM60 MG PO (10:45)
[2019-03-27] MEDS ORDERED: LASIX40 MG PO (10:46)
[2019-03-27] MEDS ORDERED: NYSTATIN1 PWD TOPICAL (11:33)
[2019-03-27] MEDS ORDERED: CALMOSEPTINE OI71 GM TOPICAL (11:33)
[2019-03-27 11:40] VITALS: BP 130/65
--- NOTE | 2019-03-27 11:59 | MORECARE ---
CASE MANAGEMENT DISCHARGE SUMMARY PATIENT: ANGEL RAI UNIT: [id number] ADM DATE: 03/21/19 AGE: 78 : 38 SEX: M ROOM/BED: D.5784 AUTHOR: DARREL,DOC PHYSICIAN: REFERRING PHYSICIAN: MATT NICHOLS MD DATE OF SERVICE: 03/27/19 Discharge Plan Patient Name: ANGEL RAI Facility: [facility]:[place] : 1940 Planned Disposition: Inpatient Rehab Anticipated Discharge Date: 03/27/19 Discharge Date: Expected LOS: 6 Initial Reviewer: [email or web address] Initial Review Date: 03/21/2019 Generated: 03/27/19 12:58 pm Comments DCP- Discharge Planning Updated by [email or web address]: Sergio Schmitz on 03/27/19 10:[address] Patient Name: ANGEL RAI Encounter No: [id number] : 1940 Primary Insurance: MEDICARE A & B Anticipated DC Date: 03-27-2019 Planned Disposition: Inpatient Rehab External Planned Provider: [facility] INPATIENT REHAB DCP follow-up note: CM SPOKE TO [facility] OF INPATIENT REHAB IN MORNING MEETING, THEY PLAN TO ACCEPT PT TODAY FOR REHAB. PT NOTIFIED, IN AGREEMENT WITH DISCHARGE TO INPATIENT REHAB. [facility] INPATIENT REHAB TO CONTACT MED 2 NURSE WITH ROOM NUMBER WHEN READY TO ACCEPT PT AND NURSE REPORT. Sergio Schmitz, CASE MAKAYLA DCP- Discharge Planning Updated by [email or web address]: Sergio Schmitz on 03/26/19 11:[address] Patient Name: ANGEL RAI Encounter No: [id number] : 1940 Primary Insurance: MEDICARE A & B Anticipated DC Date: 03-26-2019 Planned Disposition: Inpatient Rehab External Planned Provider: : DCP follow-up note: ORDER FOR INPATIENT REHAB PRESCREENING RECEIVED. CM MET WITH PT IN ROOM TO DISCUSS DISCHARGE NEEDS AND PLANNING. CM DISCUSSED AVAILABILITY OF HOME HEALTH, REHAB SERVICES AND MEDICAL EQUIPMENT. CM DISCUSSED REHAB PROVIDERS, LOCATIONS AND SERVICES. PT HAS DECIDED HE WANTS TO HAVE REHAB AT [facility] PRIOR TO GOING HOME. PT REPORTS HE HAS BEEN TO REHAB AT [facility] IN THE PAST AND IS FAMILIAR WITH THE PROGRAM. IMPORTANT MESSAGE FROM MEDICARE PROVIDED AND EXPLAINED. CM WAITING INPATIENT REHAB PRESCREEN RESULT AND ADMISSION DETERMINATION FROM [facility] INPATIENT REH[facility]. CM TO FOLLOW AND ASSIST NEEDED. Sergio Schmitz, CASE MANAGEMENT DCP- Discharge Planning Updated by [id number]: Maya Cunningham on 03/21/19 1:[address] Patient Name: ANGEL RAI Admission Status: ER Accout number: [id number] Admission Date: 03-21-2019 : 1940 Admission Diagnosis: Attending: MATT DEGROOT Current LOS: 1 Anticipated DC Date: 03-23-2019 Planned Disposition: Home Health Service Primary Insurance: MEDICARE A & B Discharge Planning Comments: CM met with patient and his daughter, Kaci Nicole, to complete initial dc planning assessment. CM educated patient on the CM role and verbal consent given by patient to complete assessment. CM verified patient's address, phone number, and emergency contact phone numbers. Patient lives at home with his grandson. He reports he has required increased assistance june past few weeks. Pate[facility]'s daughter stated she felt like the patient would benefit from home health services. List of HH Agencies provided to the patient and his daughter. MONA form signed by patient's daughter for [facility] as their first choice and [facility] as their 2nd choice. Signed form placed in chart and signed form given to patient. Informed both patient and his daughter that a order from MD will have to be given for cm to arrange HH at [facility]. At discharge patient plans to return home and feels this is a safe discharge. Patient denied further known discharge needs at this time. . Patient reports his daughter or his grandson will transport him home at time of discharge.CM will continue to follow and will assist as needed with dc plans/needs. Flap Curer: Maya Cunningham RN, [facility] DCPIA - Discharge Planning Initial Assessment Updated by [email or web address]: Maya Cunningham on 03/21/19 2:20 pm * Is the patient Alert and Oriented? Yes * How many steps to enter\exit or inside your home? * PCP Dr. Rodríugez * [place] [facility] [place] [address] * Preadmission Environment Home with Family * ADLs Partial Dependent * Partial ADLs (Assistance needed) Ambulation Bathing Transfers * Equipment Rolling Walker * List name and contact numbers for known caregivers / representatives who currently or will assist patient after discharge: Kaci Nicole - r - [phone] Héctor Reddy keysha - [phone] * Verbal permission to speak to the caregivers and representatives has been obtained from the patient. Yes * Community resources currently utilized Meals on Wheels * Additional services required to return to the preadmission environment? Yes * Can the patient safely return to the preadmission environment? Yes * Has this patient been hospitalized within the prior 30 days at any hospital? No Coverage Notice Reviewer: [id number] Maureen Schmitz Notice Issued Date-Time: 03/26/2019 8:25 Notice Type: IM Discharge Notice Notice Delivered To: Patient Relationship to Patient: Patient Services Assistant Name: Delivery Method: HAND - Hand Delivered Toma Days: Prior Verbal Notification: Recipient Understood Notice: Yes Recipient Signature: Yes Med Rec Note Co-signed by Attending: Coverage Notice Comment: Last DP export: 03/26/19 11:47 a Patient Name: ANGEL RAI Page [phone] at 1159 All edits/amendments must be made on the electronic document DICTATION DATE: 03/27/19 1158 LIQUOR TESTER: ADRIANA 03/27/19 1158 RPT#: [id number] DC DATE: STATUS: ADM IN [facility] [address] [place] [address] END OF REPORT
--- NOTE | 2019-03-27 13:19 | NUR ---
OT NOTE: PT CURRENTLY ON BS COMMODE. NURSING REPORTS THAT HE HAS BEEN ON COMMODE NUMEROUS TIMES TODAY. PT STATES THAT HE STILL FEELS BLOATED. ASSISTED PT WITH SIT TO STAND FROM TOILET WITH MIN/MOD ASSIST. TOILET HYGIENE WITH MAX ASSIST. SIMPLE GROOMING TASKS WITH SET UP. ABLE TO AMB INTO HALLWAY WITH 02 , WALKER, AND MIN ASSIST. BACK TO BED WITH MOD ASSIST FOR SIT TO SUPINE AND POSITIONING IN BED. WHILE PLACING BACK ON, PT REPORTED INCREASED PAIN IN L CALF. PRESSED ON BACK OF CALF AND REPORTED PAIN WAS WORSE. NURSING NOTIFIED. BELA BRANTLEY, OTR/L
--- NOTE | 2019-03-27 15:17 | NUR ---
REPORT CALLED TO [facility]
--- NOTE | 2019-03-27 16:46 | NUR ---
TO REHAB PER BED
== END 2019-03-27 16:46 | DRG 291 ==
LOC: D.ER 09:18 → D.M2 13:10
PROVIDERS: Family Medicine; ADMIT Family Medicine; ATTEND Family Medicine
DX: I11.0 Hypertensive heart disease with heart failure (principal); I50.31 Acute diastolic (congestive) heart failure; N17.9 Acute kidney failure, unspecified; N39.0 Urinary tract infection, site not specified; I48.92 Unspecified atrial flutter; I48.91 Unspecified atrial fibrillation; G47.33 Obstructive sleep apnea (adult) (pediatric); D64.9 Anemia, unspecified; E66.9 Obesity, unspecified; Z68.39 Body mass index [BMI] 39.0-39.9, adult; B37.2 Candidiasis of skin and nail; I08.1 Rheumatic disorders of both mitral and tricuspid valves; L89.152 Pressure ulcer of sacral region, stage 2

== ENCOUNTER 2019-03-27 15:37 | Inpatient (IN) | payer MEDICARE, OTHER ==
[~2019-03-27] VITALS: Ht 180.3 cm; Wt 127.6 kg
[~2019-03-27 15:37] MED LIST: ATIVAN0.5 MG PO; CALMOSEPTINE OI71 GM TOPICAL; CARDIZEM60 MG PO; GLUCOPHAGE500 MG PO; GLUCOPHAGE850 MG PO; K-TAB10 MEQ PO; LASIX40 MG PO; LIPITOR40 MG PO; NYSTATIN1 PWD TOPICAL; OMEPRAZOLE40 MG PO; ZYLOPRIM300 MG PO
--- NOTE | 2019-03-27 16:52 | NUR ---
recieved to room 1118a/.oriented to room and surroundings.o2 on at 2l/nc.cl in reach.
[2019-03-27 19:00] VITALS: BP 122/74
[2019-03-27 19:08] VITALS: BP 122/74; BMI 38.6
--- NOTE | 2019-03-27 22:46 | NUR ---
PT IN BED LOWEST POSITION, EYES OPEN, A&O, BREATHING EVEN AND UNLABORED, NO NEEDS NOTED, FLUIDS AND CALL LIGHT WITHIN REACH
[2019-03-28 06:23] LABS: BASOPHILS 0.2 % (0-2); EOSINOPHILS 3.3 % (0-7); HEMATOCRIT 33.9 % (42.0-54.0); HEMOGLOBIN 11.6 g/dL (13.5-17.5); IMMATURE GRANULOCYTES 0.9 % (0-5); LYMPHOCYTES 17.2 % (15-50); MCH 32.3 pg (26.0-34.0); MCHC 34.2 g/dL (31.0-37.0); MCV 94.4 fL (80.0-100.0); MONOCYTES 5.9 % (2-11); NEUTROPHILS 72.5 % (40-80); PLATELET COUNT 139 10x3/uL (130-400); RBC 3.59 10x6/uL (4.20-6.10); RDW 14.3 % (11.5-14.5); WBC 6.6 10x3/uL (4.8-10.8)
[2019-03-28 06:35] LABS: CALC OSMOLALITY 280 mosm/kg (275-300); CALCIUM 9.1 mg/dL (8.5-10.1); CARBON DIOXIDE 31.9 mmol/L (21.0-32.0); CHLORIDE - SERUM 101 mmol/L (98-107); CREATININE - SERUM 0.9 mg/dL (0.6-1.3); GLUCOSE 121 mg/dL (74-106); POTASSIUM - SERUM 3.1 mmol/L (3.5-5.1); SODIUM 138 mmol/L (136-145); UREA NITROGEN 23 mg/dL (7-18); eGFR NON AFRICAN AMERICAN 86 mL/min (90-120)
--- NOTE | 2019-03-28 08:00 | NUR ---
SHIFT ASSMT COMPLETED.
[2019-03-28 08:21] VITALS: BP 134/71
[2019-03-28 12:32] VITALS: Ht 180.3 cm; Wt 127.6 kg
--- NOTE | 2019-03-28 12:39 | NUR ---
PATIENT ADMITTED TO REHAB FROM ACUTE FLOOR. DR. MCCAULEY IS PATIENT PCP. DME AT HOME IS A ROLLING WALKER AND HE WOULD LIKE [facility] AT [address] , OR [facility] FOR HOME THERAPY. DISCHARGE PLANS ARE FOR PATIENT TO RETURN HOME WITH FAMILY. WILL CONTINUE TO FOLLOW WITH PATIENT.
[2019-03-28 19:00] VITALS: BP 129/80
--- NOTE | 2019-03-28 19:42 | NUR ---
PT SITTING UP IN BED LOWEST POSITION, WATCHING TV, PLEASANT, NO NEEDS NOTED, FLUIDS AND CALL LIGHT WITHIN REACH
[2019-03-29 08:00] VITALS: BP 120/78
[2019-03-29 08:19] LABS: BASOPHILS 0.3 % (0-2); CALC OSMOLALITY 280 mosm/kg (275-300); CALCIUM 9.3 mg/dL (8.5-10.1); CHLORIDE - SERUM 100 mmol/L (98-107); CREATININE - SERUM 0.9 mg/dL (0.6-1.3); GLUCOSE 112 mg/dL (74-106); HEMATOCRIT 33.8 % (42.0-54.0); HEMOGLOBIN 11.7 g/dL (13.5-17.5); IMMATURE GRANULOCYTES 0.4 % (0-5); LYMPHOCYTES 19.5 % (15-50); MCH 32.5 pg (26.0-34.0); MCHC 34.6 g/dL (31.0-37.0); MCV 93.9 fL (80.0-100.0); MONOCYTES 5.6 % (2-11); NEUTROPHILS 71.2 % (40-80); PLATELET COUNT 148 10x3/uL (130-400); POTASSIUM - SERUM 3.4 mmol/L (3.5-5.1); RDW 14.3 % (11.5-14.5); SODIUM 138 mmol/L (136-145); UREA NITROGEN 24 mg/dL (7-18); WBC 7.3 10x3/uL (4.8-10.8); eGFR NON AFRICAN AMERICAN 86 mL/min (90-120)
--- NOTE | 2019-03-29 11:17 | NUR ---
SPOKE WITH PATIENT DAUGHTER MARIANA WATTS REGARDING DISCHARGE PLANS. IF PATIENT IS UNABLE TO DISCHARGE HOME SHE WOULD LIKE A REFERRAL TO BE MADE TO [facility]. TO REURN HOME PATIENT IS IN NEED OF A HOSPTIAL BED AND SHE REQUEST IT TO BE ORDERED THROUGH [facility]. WILL CONTINUE TO FOLLOW WITH PATIENT AND WILL ASSIST WITH DISCHARGE NEEDS.
--- NOTE | 2019-03-29 12:33 | NUR ---
SITTING UP IN BED EATING LUNCH. LUE IS ELEVATED ON PILLOWS TO HELP WITH SWELLING. DENIES NEEDS. CALL LIGHT IN REACH
[2019-03-29 19:00] VITALS: BP 136/76
--- NOTE | 2019-03-29 19:29 | NUR ---
PT IS RESTING IN BED WATCHING TV. ALERT AND ORIENTED X 3. DENIES ACUTE DISCOMFORT AT THIS TIME. NO NEEDS VOICED. MONTILLA CATH IS PATENT AND DRAINING TO A GRAVITY BAG. LEFT ARM ELEVATED UP ON A PILLOW, DUE TO 3+ EDEMA. O2 IS ON @! 2LPM PER NC. NO SOB NOTED. SR'S ARE UP X 2 IN BED. CALL LIGHT AND BEDSIDE TABLE ARE WITHIN EASY REACH.
--- NOTE | 2019-03-29 22:53 | NUR ---
PT ASSISTED TO THE BATHROOM WITH MAX ASSIST X 2. LARGE BM NOTED.
--- NOTE | 2019-03-30 00:43 | NUR ---
PT RESTING IN BED WITH EYES OPEN. VOICED COMPLAINT OF FEELING FULL OF GAS. PT OFFERED TO GET OUT OF BED FOR A FEW MINUTES TO TRY AND RELEASE GAS. HE REFUSED TO TRY.
--- NOTE | 2019-03-30 01:24 | NUR ---
I have reviewed this patient and I concur with the Shift Assessment completed by the Licensed Practical Nurse today this shift.
--- NOTE | 2019-03-30 06:03 | NUR ---
PT RESTING IN BED WITH EYES CLOSED. AWOKE EASILY TO VERBAL STIMULI. PT UP TO WEIGHT WITHOUT DIFFICULTY. TOLERATED AM MED WITHOUT DIFFICULTY. NO FURTHER NEEDS VOICED.
[2019-03-30 07:35] VITALS: BP 109/64
--- NOTE | 2019-03-30 16:06 | NUR ---
HEAD OF BED ELEVATED APPX 70 DEGREES. IS SITTING UP WITH EYES CLOSED, OXYGEN IN PLACE. NO S/S DISTRESS. F/C DRAINING CLOUDY URINE. CALL LIGHT IN REACH. BED IN LOWEST POSITION. SIDE RAILS UP X2.
--- NOTE | 2019-03-30 19:06 | NUR ---
PT STATED: " I CANT WAIT ANY LONGER. I NEED TO GET IN THE BED, IM FREEZING AND TIRED OF SITTING UP." PT ASSISTED INTO BED WITH MOD ASSIST. POSITIONED TO HIS COMFORT. MONTILLA CATH IS PATENT AND DRAINING TO A GRAVITY BAG. 3+ EDEMA NOTED TO LEFT ARM. ARM ELEVATED ON PILLOW. SR'S ARE UP X 2 IN BED. CALL LIGHT AND BEDISE TABLE ARE WITHIN EASY REACH.
[2019-03-30 20:20] VITALS: BP 125/87
--- NOTE | 2019-03-30 21:38 | NUR ---
PT RESTING IN BED WITH EYES CLOSED.
--- NOTE | 2019-03-31 00:40 | NUR ---
PT RESTING IN BED WITH EYES CLOSED.
--- NOTE | 2019-03-31 01:00 | NUR ---
I have reviewed this patient and I concur with the Shift Assessment completed by the Licensed Practical Nurse today this shift.
--- NOTE | 2019-03-31 04:18 | NUR ---
PT RESTING IN BED WITH EYES CLOSED. RESPS ARE EVEN AND UNLABORED. NO DISTRESS NOTED.
--- NOTE | 2019-03-31 06:03 | NUR ---
PT RESTING IN BED WATCHING TV. NO NEEDS VOICED.
[2019-03-31 07:31] VITALS: BP 111/73
--- NOTE | 2019-03-31 07:50 | NUR ---
HEAD OF BED ELEVATED TO 75 DEGREES. EYES CLOSED. OXYGEN IN PLACE. RESP EFFORT NON LABORED. CALL LIGHT IN REACH.
--- NOTE | 2019-03-31 10:26 | NUR ---
NURSE CALLED TO CHECK PT BECASUSE 02 SATURATION 88%, WENT IN PT ROOM, PT IN RESTROOM, KNOCKED ON DOOR, PT STATED HE WAS OKAY AND TO NOT COME IN, I ASKED HOW HE WAS BREATHING HE STATED FINE, I ADVISED PT TO CALL IF HE NEEDED HELP.
--- NOTE | 2019-03-31 10:55 | NUR ---
SITTING IN WC IN ROOM WATCHING TV. ASSISTED HIM TO USE TOILET. STOOL IS LOOSE. INCREASED SOB WITH ACTIVITY. BLE ARE STILL EDEMATOUS. CALL LIGHT IN REACH
--- NOTE | 2019-03-31 19:15 | NUR ---
PT RESTING IN BED WITH EYES OPEN. ALERT AND ORIENTED X 3. DENIES ANY PAIN OR DISCOMFORT. NO NEEDS VOICED. MONTILLA CATH IS PATENT AND DRAINING TO A GRAVITY BAG. BLADDER TRAINING STARTED. SR'S ARE UP X 2 IN BED. CALL LIGHT AND BEDSIDE TABLE ARE WITHIN EASY REACH.
[2019-03-31 19:25] VITALS: BP 137/74
--- NOTE | 2019-03-31 21:29 | NUR ---
PATIENT IN BATHROOM. ASSISTED BACK TO WHEELCHAIR WITH MIN ASSIST. NO COMPLAINTS VOICED. WILL CONTINUE TO MONITOR.
--- NOTE | 2019-04-01 01:23 | NUR ---
RESTING IN BED WITH EYES CLOSED.
--- NOTE | 2019-04-01 04:53 | NUR ---
RESTING QUIETLY IN BED WITH EYES CLOSED. RESPS ARE EVEN AND UNLABORED. NO ACUTE DISTRESS NOTED.
[2019-04-01 07:00] LABS: BASOPHILS 0.3 % (0-2); EOSINOPHILS 2.7 % (0-7); HEMATOCRIT 33.2 % (42.0-54.0); HEMOGLOBIN 11.4 g/dL (13.5-17.5); IMMATURE GRANULOCYTES 0.4 % (0-5); LYMPHOCYTES 20.5 % (15-50); MCH 32.4 pg (26.0-34.0); MCHC 34.3 g/dL (31.0-37.0); MCV 94.3 fL (80.0-100.0); MEAN PLATELET VOLUME 10.2 fL (7.4-10.4); MONOCYTES 5.9 % (2-11); NEUTROPHILS 70.2 % (40-80); PLATELET COUNT 145 10x3/uL (130-400); RBC 3.52 10x6/uL (4.20-6.10); RDW 14.8 % (11.5-14.5); WBC 7.8 10x3/uL (4.8-10.8)
[2019-04-01 07:38] LABS: CALC OSMOLALITY 280 mosm/kg (275-300); CALCIUM 9.7 mg/dL (8.5-10.1); CARBON DIOXIDE 33.5 mmol/L (21.0-32.0); CHLORIDE - SERUM 101 mmol/L (98-107); GLUCOSE 113 mg/dL (74-106); POTASSIUM - SERUM 3.4 mmol/L (3.5-5.1); PRO BNP 3411 pg/mL (0-450); SODIUM 138 mmol/L (136-145); UREA NITROGEN 23 mg/dL (7-18); eGFR NON AFRICAN AMERICAN 76 mL/min (90-120)
[2019-04-01 08:00] VITALS: BP 112/71
--- NOTE | 2019-04-01 08:00 | NUR ---
PT RESTING IN BED WITH EYES OPEN CALL LIGHT IN REACH NO PROBLEMS WILL MONITER
--- NOTE | 2019-04-01 15:19 | NUR ---
PT REFUSES SHOWER SAYS HE IS TO TIRED FOR A SHOWER AND DOES NOT WANT ONE
--- NOTE | 2019-04-01 15:59 | NUR ---
PT RESTING IN BED WITH EYES OPEN CALL LIGHT IN REACH WILL MONITER
--- NOTE | 2019-04-01 16:29 | NUR ---
I have reviewed this patient and I concur with the Shift Assessment completed by the Licensed Practical Nurse today this shift.
[2019-04-01 19:00] VITALS: BP 107/64
--- NOTE | 2019-04-01 20:00 | NUR ---
PT LYING IN BED WATCHING TV. CALL LIGHT IN REACH. DENIES NEEDS OR PAIN AT THIS TIME. BED IN LOW SIDE RAILS X2. RESP EVEN AND UNLABORED. MONTILLA INTACT AND IN PLACE. URINE WNL. BLADDER TRAINING IN PROGRESS. CLAMPED AT THIS TIME. A/O X4. YEAST BETWEEN ABD FOLDS. EDEMA TO LEFT FOREARM. WILL CONTINUE TO MONITOR.
--- NOTE | 2019-04-01 22:29 | NUR ---
PT RESTING QUIETLY. CALL LIGHT IN REACH. NO SIGNS OF DISTRESS OR PAIN. BED IN LOW SIDE RAILS X2. PT ON 4L OF O2. WILL CONTINUE TO MONITOR. PT ONLY ABLE TO KEEP MONTILLA CLAMPED FOR 45 MIN.
--- NOTE | 2019-04-02 02:15 | NUR ---
RESTING IN BED WITH EYES CLOSED AND RESPIRAITONS UNLABORED. NO DISTRESS NOTED. CALL LIGHT IN REACH.
--- NOTE | 2019-04-02 03:00 | NUR ---
PT RESTING QUIETLY. EYES CLOSED. NO SIGNS OF DISTRESS OR PAIN. BED IN LOW. CALL LIGHT IN REACH. RESP EVEN AND UNLABORED. WCTM
--- NOTE | 2019-04-02 07:27 | NUR ---
RESTING WO C/O PAIN. NO DISTRESS NOTED.
--- NOTE | 2019-04-02 07:37 | NUR ---
PT RESTING IN BED EYES OPEN CALL LIGHT IN REACH NO PROBLEMS WILL JAVIER
[2019-04-02 08:00] VITALS: BP 117/68
--- NOTE | 2019-04-02 12:23 | NUR ---
I have reviewed this patient and I concur with the Shift Assessment completed by the Licensed Practical Nurse today this shift.
--- NOTE | 2019-04-02 12:49 | NUR ---
Nutrition follow up Cardiac diet with 50% average po intake Pt reports foods do not taste good however this is not due to low sodium diet as he reports even grapes dont taste right. Pt reports some difficulty swallowing. Will make speech therapist aware Pt believes he is gaining weight (fluid) and legs are very swollen-make nursing aware. Weight 252lb BM today-however pt reports he is not emptying his bowels RD following
[2019-04-02 19:00] VITALS: BP 133/76
--- NOTE | 2019-04-02 19:52 | NUR ---
PT RESTING QUIETLY. CALL LIGHT IN REACH. EYES CLOSED. BED IN LOW. SIDE RAILS X2. MONTILLA INTACT. URINE WNL. RESP EVEN AND UNLABORED. LUNGS DIMINISHED BILAT. O2 ON 4L. BOWEL ACTIVE X4. WCTM
--- NOTE | 2019-04-03 02:33 | NUR ---
RESTING IN BED WITH EYES CLOSED AND RESPIRATIONS UNLABORED. NO DISTRESS NOTED. CALL LIGHT IN REACH.
--- NOTE | 2019-04-03 02:45 | NUR ---
PT SITTING UP IN BED RESTING QUIETLY. CALL LIGHT IN REACH. NO SIGNS OF DISTRESS OR PAIN. BED IN LOW. BED ALARM ON. EYES CLOSED. RESP EVEN AND UNLABORED. WCTM
[2019-04-03 06:46] LABS: BASOPHILS 0.4 % (0-2); EOSINOPHILS 2.5 % (0-7); HEMATOCRIT 31.9 % (42.0-54.0); HEMOGLOBIN 10.9 g/dL (13.5-17.5); IMMATURE GRANULOCYTES 0.3 % (0-5); LYMPHOCYTES 17.8 % (15-50); MCH 32.2 pg (26.0-34.0); MCHC 34.2 g/dL (31.0-37.0); MCV 94.4 fL (80.0-100.0); MEAN PLATELET VOLUME 10.4 fL (7.4-10.4); MONOCYTES 6.5 % (2-11); NEUTROPHILS 72.5 % (40-80); PLATELET COUNT 156 10x3/uL (130-400); RBC 3.38 10x6/uL (4.20-6.10); RDW 14.8 % (11.5-14.5); WBC 7.7 10x3/uL (4.8-10.8)
[2019-04-03 06:51] LABS: CALC OSMOLALITY 275 mosm/kg (275-300); CALCIUM 9.4 mg/dL (8.5-10.1); CARBON DIOXIDE 33.3 mmol/L (21.0-32.0); CHLORIDE - SERUM 97 mmol/L (98-107); CREATININE - SERUM 0.9 mg/dL (0.6-1.3); GLUCOSE 110 mg/dL (74-106); POTASSIUM - SERUM 3.5 mmol/L (3.5-5.1); SODIUM 136 mmol/L (136-145); UREA NITROGEN 21 mg/dL (7-18); eGFR NON AFRICAN AMERICAN 86 mL/min (90-120)
[2019-04-03 08:00] VITALS: BP 139/74
--- NOTE | 2019-04-03 12:19 | NUR ---
SITTING IN WC IN ROOM EATING LUNCH. WEARING OXYGEN VIA NC. STATES HE IS TIRED BUT DENIES PAIN. CALL LIGHT IN REACH
[2019-04-03 19:00] VITALS: BP 140/71
--- NOTE | 2019-04-03 20:31 | NUR ---
PT IN BED LOWEST POSITION, EYES OPEN, A&O, PLEASANT, NO NEEDS NOTED, FLUIDS AND CALL LIGHT WITHIN REACH
[2019-04-04 08:00] VITALS: BP 125/68
--- NOTE | 2019-04-04 08:37 | NUR ---
PT RESTING IN BED WITH EYES OPEN CALL LIGHT IN REACH WILL MONITER
--- NOTE | 2019-04-05 01:49 | NUR ---
PT IN BED LOWEST POSITION, EYES CLOSED AROUSES EASILY TO VOICE, BREATHS SLOW EVEN AND UNLABORED, NO NEEDS NOTED, FLUIDS AND CALL LIGHT WITHIN REACH,
[2019-04-05 06:39] VITALS: BP 132/75
--- NOTE | 2019-04-05 07:06 | NUR ---
RESTING QUIETLY IN BED. EYES CLOSED. NO S/S DISTRESS NOTED. OXYGEN IN PLACE. SIDE RAILS UP X2. CALL LIGHT IN REACH.
[2019-04-05 08:09] VITALS: BP 134/74
--- NOTE | 2019-04-05 09:03 | RHP ---
PATIENT: ANGEL RAI MEDICAL RECORD: [id number] ACCOUNT: [id number] LOCATION:[facility]1118 : 36 ADMISSION DATE: 03/27/19 REHABILITATION HISTORY AND PHYSICAL EXAMINATION POST ADMISSION PHYSICIAN EXAMINATION DATE OF ADMISSION: 03/27/2019 ADMITTING DIAGNOSIS: Acute congestive heart failure. HISTORY OF PRESENT ILLNESS: The patient admitted to inpatient rehabilitation for a cardiac acute diastolic congestive heart failure. An 78-year-old gentleman who presented to ED with increasing shortness of breath, generalized weakness, worsening dyspnea, dyspnea on exertion, having problems with completing any type of ADLs. He was admitted with acute renal insufficiency with creatinine of 2.4. BNP was greater than 11,000. He had AFib with rapid ventricular response and atrial flutter. He had decubitus. He had also intertrigo. Cardiology and nephrology was consulted, saw him during his stay. He has been on telemetry, supplemental O2. He has been closely watched for his I's and O's and Hurtado catheter placement. He has been requiring some supplemental O2 at times. He is deconditioned. He has weakness, impaired mobility. He is a fall risk and self-care deficits. These are all barriers to his discharge home safely at this time. He lives at home with his grandsons and was moderately independent with a rolling walker and independent with his ADLs. He is currently mod assist to total assist with mobility and set up for mod assist for ADLs. He and his family plan for him to be able to return home at his prior level of functioning or better after being set up with home health after stay. COMORBIDITIES: In this patient include atrial fibrillation with rapid ventricular response, decubitus ulcers, intertrigo, normocytic anemia, deconditioning, debility, weakness and impaired mobility. PAST MEDICAL HISTORY: Significant for hyperlipidemia, obstructive sleep apnea, sinus problems, CHF, AFib, gastritis, arthritis, chronic back pain. PAST SURGICAL HISTORY: Includes gallbladder surgery. He has had left elbow surgery times 6. Has knee scoped in a right partial knee. ALLERGIES: ANY TYPE OF EGG DERIVED PRODUCTS. MEDICATIONS: Currently he is on the electrolyte replacement protocol at this time. He is on metformin 500 mg daily, potassium 10 mEq daily, Protonix 40 mg daily, metformin 850 daily, Lipitor 40 mg daily, allopurinol 300 mg daily, furosemide 40 mg b.i.d., MiraLax 17 g in 8 ounces of water daily, nystatin powder topically. He is on Calmoseptine to apply b.i.d., lorazepam 0.5 mg b.i.d. p.r.n. and Cardizem 60 mg t.i.d. HABITS: No current alcohol or tobacco use. FAMILY HISTORY: Noncontributory. SOCIAL HISTORY: The patient hopes to return back home and get back to his prior level of function. HISTORY AND PHYSICAL [id number] ANGEL RAI REVIEW OF SYSTEMS: GENERAL: Does complain of weakness and fatigue. HEENT: Denies cold, cough, or congestion. CARDIOVASCULAR: Denies chest pain. PHYSICAL EXAMINATION: VITAL SIGNS: Stable, afebrile. Generally a morbidly obese gentleman in no acute distress, alert upon exam. HEENT: Normocephalic and atraumatic. Mucosa moist. NECK: Supple. No lymphadenopathy. LUNGS: Clear at this time. HEART: Irregular rate and rhythm. ABDOMEN: Benign. EXTREMITIES: No clubbing, cyanosis, but does have some peripheral edema. NEUROLOGIC: Does have noted weakness. LABORATORY DATA: His white count 6.6, H&H of 11 and 33 and platelet count was noted to be 139. His sodium is 138, potassium 3.1, BUN and creatinine of 23 and 0.9 and blood sugar is noted to be 121. ASSESSMENT: This is an 78-year-old gentleman admitted to the rehab with a working diagnosis of congestive heart failure. The patient has potential to make improvement. We instituted the following multidisciplinary therapies including, not limited to physical, occupational, respiratory, speech, nutritional services, prosthetics and orthotics. Given his complex medical condition and risk for more complications, rehabilitation services cannot be provided at a low level of care such as skilled nurse facility. PLAN: 1. 1. Admit to [facility] for intensive inpatient therapy to include the following disciplines; A. Physical therapy to improve gait, all transfer skills and bed mobility to a modified independent level. B. Occupational therapy to a modified independent level. C. Case management to assist with discharge planning and placement options. D. Nutrition to assist with nutritional needs. E. Rehabilitation nursing to assist in monitoring the patient's underling medical conditions and to assist with any type of bowel or bladder management. 2. The patient's current medication and medical care will be continued. 3. The patient will be placed on standard fall precautions. 4. The patient's estimated length of stay is approximately 7-10 days. 5. We will discuss the patient with care team staff meeting this week. TRANSINT:[id number] Voice Confirmation ID: [id number] DOCUMENT ID: [id number] MEGAN notes whether there has been none or any medical/functional change since admission: - No change since preadmission screen. MEGAN attests patient continues to be appropriate for IRF: - Continues to be appropriate. HISTORY AND PHYSICAL [id number] ANGEL RAI,MARKEL DOMÍNGUEZ MD at 0903 CC: [id number] DICTATION DATE: 03/28/1938 HOTEL SERVER: 03/28/19 1136 ADM IN [place] [id number] [place] [id number]
--- NOTE | 2019-04-05 12:48 | NUR ---
SITTING UP IN BED EATING LUNCH. STILL WEARING OXYGEN. DENIES NEEDS OR QUESTIONS AT PRESENT.
--- NOTE | 2019-04-05 13:57 | NUR ---
PATIENT DISCHARGING HOME TODAY WITH FAMILY. [facility], [facility] AND A TUB TRANSFER BENCH. FAMILY TO CALL DR. MCCAULEY OFFICE TO MAKE AN APPOINTMENT. DR. ROMAN 04/08/19 @ 10:00. PATIENT CHOICE FORM AND IMFM FORMS SIGNED, COPY GIVEN TO PATIENT AND FILED IN CHART. DISCHARGE INSTRUCTIONS WITH [facility] FAXED TO PCP, HOME HEALTH AND REVIEWED WITH PATIENT.
--- NOTE | 2019-04-05 16:19 | NUR ---
DC HOME WITH GRANDSON WHO CAME TO GET HIM. ALL BELONGINGS PACKED UP AND NURSE ASST PT INTO CAR.
== END 2019-04-05 16:20 | disposition home health service (06) | DRG 292 ==
LOC: D.REHAB 15:37
PROVIDERS: ADMIT Emergency Medicine; ATTEND Emergency Medicine
DX: I50.31 Acute diastolic (congestive) heart failure (principal); N17.9 Acute kidney failure, unspecified; I48.91 Unspecified atrial fibrillation; L30.4 Erythema intertrigo; D64.9 Anemia, unspecified; R53.81 Other malaise; R53.1 Weakness; L89.90 Pressure ulcer of unspecified site, unspecified stage; R06.00 Dyspnea, unspecified

== ENCOUNTER 2019-04-17 13:59 | Inpatient (IN) | payer MEDICARE, OTHER ==
[2019-04-17 14:59] VITALS: BP 134/79
[2019-04-17 15:14] LABS: BASOPHILS 0.2 % (0-2); EOSINOPHILS 0.5 % (0-7); HEMATOCRIT 33.8 % (42.0-54.0); HEMOGLOBIN 11.4 g/dL (13.5-17.5); IMMATURE GRANULOCYTES 0.3 % (0-5); LYMPHOCYTES 10.2 % (15-50); MCH 32.1 pg (26.0-34.0); MCHC 33.7 g/dL (31.0-37.0); MCV 95.2 fL (80.0-100.0); MEAN PLATELET VOLUME 9.8 fL (7.4-10.4); NEUTROPHILS 84.8 % (40-80); PLATELET COUNT 168 10x3/uL (130-400); RBC 3.55 10x6/uL (4.20-6.10); RDW 14.6 % (11.5-14.5); WBC 6.5 10x3/uL (4.8-10.8)
[2019-04-17 15:32] VITALS: BP 131/79
[2019-04-17 15:42] LABS: ALBUMIN 3.1 g/dL (3.4-5.0); ALKALINE PHOSPHATASE 178 U/L (46-116); ALT (SGPT) 35 U/L (10-68); AMYLASE - SERUM 35 U/L (25-115); BILIRUBIN - TOTAL 0.85 mg/dL (0.2-1.3); CALC OSMOLALITY 283 mosm/kg (275-300); CALCIUM 9.2 mg/dL (8.5-10.1); CARBON DIOXIDE 30.4 mmol/L (21.0-32.0); CHLORIDE - SERUM 101 mmol/L (98-107); GLUCOSE 115 mg/dL (74-106); LIPASE 146 U/L (73-393); PROTEIN - SERUM 7.1 g/dL (6.4-8.2); SODIUM 141 mmol/L (136-145); UREA NITROGEN 18 mg/dL (7-18); eGFR NON AFRICAN AMERICAN 76 mL/min (90-120)
[2019-04-17 15:49] LABS: TROPONIN-I < 0.017 ng/mL (0.000-0.060)
[2019-04-17 15:51] LABS: POTASSIUM - SERUM 2.8 mmol/L (3.5-5.1)
[2019-04-17 16:00] VITALS: BP 126/79
--- NOTE | 2019-04-17 17:29 | NUR ---
THIS RN ENTERS ROOM TO ANSWER CALL LIGHT. PT DAUGHTER IN ROOM EXPRESSES DISSATISFACTION WITH CARE FROM THIS RN. STATES THIS RN HAS A "FLIPPANT AND SASSY" ATTITUDE. THIS RN ATTEMPTS TO APOLOGIZE AND INQUIRE IF PT HAD A NEED THAT THIS RN HAS NOT MET. PT STATES "NO". PT DAUGHTER AGAIN STATES THAT SHE DOES NOT LIKE THIS RN'S ATTITUDE. 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 THIS RN ASSISTS PT TO WHEELCHAIR TO TAKE TO BATHROOM. PT DAUGHTER ASKS THIS RN IF THIS RN WILL ASSIST PT IN BATHROOM. PT HAS ORDER FOR URINE SAMPLE AND EARLIER IN VISIT, THIS RN REQUESTED A SAMPLE FROM PT. THIS RN TELLS PT DAUGHTER THAT I WILL ASSIST PT WITH URINAL. IN BATHROOM, PT REQUESTS A HAT. HAT WAS PROVIDED ET A NEW DEPENDS PROVIDED TO PT THE OTHER DEPENDS WAS SOILED. PT STATES TO THIS RN "I HOPE SHE DOESN'T CAUSE YOU ANY TROUBLE". CHARGE NURSE NOTIFIED ET TO BEDSIDE.
[2019-04-17 19:32] VITALS: BP 115/66
--- NOTE | 2019-04-17 19:58 | NUR ---
PT REPORT CALLED TO [facility] FLOOR NURSE VIA SBAR AT THIS TIME.
--- NOTE | 2019-04-17 20:45 | NUR ---
PT ARRIVED TO FLOOR VIA STRETCHER, ALERT AND ORIENTED, WITHOUT DISTRESS. TRANSFERED TO BED, TOLERATED WELL. IV LEFT HAND INFUSING NS @ 75 WITH 10MEQ K+ RIDER. PLACED TELE ON PT, RUNNING 87 CONTROLLED AFIB. O2 3L/NC. REMINDED PT HE IS NPO, PROVIDED PT WITH LEMON MOUTH SWABS FOR DRY MOUTH. NGT TO LEFT NARE TO LIS. DENIES NAUSEA OR PAIN AT THIS TIME. BED ALARM ON. PLEXI BOOTS PLACED ON PT. 3LTW6SI ULCERS TO EACH BUTTCHEEK, OPEN WITH SLIGHT PINK/BLOODY DRAINAGE, APPLIED MEPILEX DRESSING. ASSISTED PT UP TO BATHROOM TO VOID, PT REFUSES TO USE URINAL. ASSISTED BACK TO BED. BED LOWEST POSITION, SRX2, CL IN REACH. WILL CTM
[2019-04-18 01:00] LABS: APPEARANCE CLEAR (CLEAR); BILIRUBIN NEGATIVE (NEGATIVE); COLOR YELLOW (YELLOW); GLUCOSE NEGATIVE (NEGATIVE); KETONE NEGATIVE (NEGATIVE); NITRITE NEGATIVE (NEGATIVE); PROTEIN NEGATIVE (NEGATIVE); SPECIFIC GRAVITY 1.005 (1.005-1.020); UROBILINOGEN NORMAL (NORMAL)
[2019-04-18 01:35] VITALS: BP 123/76
[2019-04-18 02:14] VITALS: BMI 39.2
[2019-04-18 05:44] LABS: BASOPHILS 0.2 % (0-2); EOSINOPHILS 1.8 % (0-7); HEMATOCRIT 31.6 % (42.0-54.0); HEMOGLOBIN 10.6 g/dL (13.5-17.5); IMMATURE GRANULOCYTES 0.2 % (0-5); LYMPHOCYTES 17.4 % (15-50); MCH 32.1 pg (26.0-34.0); MCHC 33.5 g/dL (31.0-37.0); MCV 95.8 fL (80.0-100.0); MEAN PLATELET VOLUME 10.1 fL (7.4-10.4); MONOCYTES 7.6 % (2-11); NEUTROPHILS 72.8 % (40-80); PLATELET COUNT 163 10x3/uL (130-400); RDW 14.7 % (11.5-14.5)
[2019-04-18 06:31] VITALS: BP 123/76
[2019-04-18 06:45] LABS: ALBUMIN 2.7 g/dL (3.4-5.0); ALKALINE PHOSPHATASE 158 U/L (46-116); ALT (SGPT) 35 U/L (10-68); BILIRUBIN - TOTAL 0.59 mg/dL (0.2-1.3); CALC OSMOLALITY 283 mosm/kg (275-300); CALCIUM 8.7 mg/dL (8.5-10.1); CARBON DIOXIDE 30.7 mmol/L (21.0-32.0); CHLORIDE - SERUM 104 mmol/L (98-107); CREATININE - SERUM 0.8 mg/dL (0.6-1.3); GLUCOSE 100 mg/dL (74-106); MAGNESIUM - SERUM 1.4 mg/dL (1.8-2.4); PHOSPHOROUS 3.5 mg/dL (2.5-4.9); PROTEIN - SERUM 6.5 g/dL (6.4-8.2); SODIUM 142 mmol/L (136-145); UREA NITROGEN 14 mg/dL (7-18); eGFR NON AFRICAN AMERICAN > 90 mL/min (90-120)
[2019-04-18 06:48] LABS: POTASSIUM - SERUM 2.7 mmol/L (3.5-5.1)
[2019-04-18 10:10] VITALS: BP 110/69
[2019-04-18 10:25] VITALS: BMI 39.2
[2019-04-18 14:30] VITALS: BP 152/83
[2019-04-18 15:18] VITALS: BMI 39.2
[2019-04-18 17:59] VITALS: BP 107/70
--- NOTE | 2019-04-18 19:00 | NUR ---
PT SITTING UP IN BED WITHOUT DISTRESS. ALERT AND ORIENTED. WITHOUT PAIN OR NEEDS AT THIS TIME. ABD DISTENDED, FIRM TO TOUCH. IV LEFT HAND INFUSING NS WITH 40K @ 75. PT FOURTH POTASSIUM RIDER FINISHED AT THIS TIME. ORDERED REDRAW FOR 2299. PLEXI BOOTS IN PLACE. WILL CTM
[2019-04-18 19:58] VITALS: BP 125/65
[2019-04-18 23:47] LABS: MAGNESIUM - SERUM 1.9 mg/dL (1.8-2.4)
[2019-04-19] VITALS: BP 125/65
--- NOTE | 2019-04-19 | NUR ---
K+ 3 AT RECHECK, STARTED 1 OF 4 POTASSIUM 10 MEQ RIDERS
[2019-04-19 04:00] VITALS: BP 137/76
[2019-04-19 05:29] LABS: BASOPHILS 0.1 % (0-2); EOSINOPHILS 1.3 % (0-7); HEMATOCRIT 33.3 % (42.0-54.0); IMMATURE GRANULOCYTES 0.3 % (0-5); LYMPHOCYTES 12.4 % (15-50); MCH 31.6 pg (26.0-34.0); MCV 95.7 fL (80.0-100.0); MEAN PLATELET VOLUME 9.6 fL (7.4-10.4); NEUTROPHILS 79.9 % (40-80); PLATELET COUNT 142 10x3/uL (130-400); RBC 3.48 10x6/uL (4.20-6.10); RDW 14.6 % (11.5-14.5)
[2019-04-19 05:46] LABS: CALC OSMOLALITY 284 mosm/kg (275-300); CARBON DIOXIDE 31.9 mmol/L (21.0-32.0); CHLORIDE - SERUM 104 mmol/L (98-107); CREATININE - SERUM 0.8 mg/dL (0.6-1.3); GLUCOSE 101 mg/dL (74-106); MAGNESIUM - SERUM 1.9 mg/dL (1.8-2.4); PHOSPHOROUS 3.1 mg/dL (2.5-4.9); SODIUM 143 mmol/L (136-145); UREA NITROGEN 13 mg/dL (7-18); eGFR NON AFRICAN AMERICAN > 90 mL/min (90-120)
[2019-04-19 05:47] LABS: POTASSIUM - SERUM 3.5 mmol/L (3.5-5.1)
--- NOTE | 2019-04-19 08:30 | NUR ---
AWAKE AND ALERT. ORIENTED X3. NO C/O AT THIS TIME. LUNGS ARE DIMINISHED THROUGOUT WITH CRACKLES AND WHEEZES NOTED. NO COUGH NOTED AT THIS TIME. SKIN IS INTACT WITHOUT REDNESS EXCEPT STAGE 2 TO COCCYX AREA WHICH HAS BUTT BALM ON IT. IV TO LEFT HAND IS PATENT WITHOUT REDNESS AT INSERTION SITE. DENIES NEEDS. SCD'S IN PLACE. NG TO LEFT NARE PATENT WITH SCANT OUTPUT. WILL MONITOR.
[2019-04-19 08:59] VITALS: BP 153/91
--- NOTE | 2019-04-19 11:45 | NUR ---
UP TO BSC WITH ONE PERSON ASSIST. HAD ABOUT 300CC LIQUID LIGHT BROWN STOOL. SKIN CARE PER STAFF. NG TO LEFT NARE ALMOST OUT. D/C PER NURSE PER PATIENT REQUEST, R/T GAGGING. FSBS 119. NO COVERAGE.
--- NOTE | 2019-04-19 14:35 | NUR ---
UP TO BSC WITH ONE PERSON ASSIST. HAD LARGE AMOUNT OF LOOSE WATERY STOOL. SPICIMEN SENT TO LAB.
--- NOTE | 2019-04-19 16:15 | MORECARE ---
CASE MANAGEMENT DISCHARGE SUMMARY PATIENT: ANGEL RAI N UNIT: [id number] ADM DATE: 04/17/19 AGE: 78 : 38 SEX: M ROOM/BED: D.2202 AUTHOR: VANI ROJO PHYSICIAN: REFERRING PHYSICIAN: LENA SALES DO DATE OF SERVICE: 04/19/19 Discharge Plan Patient Name: ANGEL RAI [facility] [facility] 1940 Planned Disposition: Anticipated Discharge Date: Discharge Date: Expected LOS: Initial Reviewer: [email or web address] Initial Review Date: 04/17/2019 Generated: 04/19/19 5:15 pm Comments DCP- Discharge Planning Updated by [id number]: Yesi Ibrahim on 04/19/19 3:[address] Attempted to see the patient at 2 separate occasions and he was sleeping. CM will attempt to see him again at a later time. Patient Name: ANGEL RAI Page [id number] at 1615 All edits/amendments must be made on the electronic document DICTATION DATE: 04/19/19 1615 HUMAN RESOURCES COMPLIANCE MANAGER: ADRIANA 04/19/19 161 RPT#: [id number] DC DATE: STATUS: ADM IN [facility] [address] [place] [address] END OF REPORT
[2019-04-19 17:49] VITALS: BP 167/58
[2019-04-19 20:00] VITALS: BP 137/60
[2019-04-20] VITALS: BP 130/71
[2019-04-20 04:00] VITALS: BP 129/75
[2019-04-20 06:17] LABS: BASOPHILS 0.1 % (0-2); HEMATOCRIT 32.1 % (42.0-54.0); HEMOGLOBIN 10.7 g/dL (13.5-17.5); IMMATURE GRANULOCYTES 0.3 % (0-5); LYMPHOCYTES 15.8 % (15-50); MCH 31.9 pg (26.0-34.0); MCHC 33.3 g/dL (31.0-37.0); MCV 95.8 fL (80.0-100.0); MEAN PLATELET VOLUME 9.9 fL (7.4-10.4); MONOCYTES 7.4 % (2-11); NEUTROPHILS 75.4 % (40-80); PLATELET COUNT 155 10x3/uL (130-400); RBC 3.35 10x6/uL (4.20-6.10); RDW 14.8 % (11.5-14.5); WBC 6.9 10x3/uL (4.8-10.8)
[2019-04-20 06:54] LABS: CALC OSMOLALITY 287 mosm/kg (275-300); CALCIUM 8.8 mg/dL (8.5-10.1); CARBON DIOXIDE 30.4 mmol/L (21.0-32.0); CHLORIDE - SERUM 105 mmol/L (98-107); CREATININE - SERUM 0.8 mg/dL (0.6-1.3); GLUCOSE 87 mg/dL (74-106); MAGNESIUM - SERUM 1.7 mg/dL (1.8-2.4); PHOSPHOROUS 2.6 mg/dL (2.5-4.9); SODIUM 145 mmol/L (136-145); UREA NITROGEN 13 mg/dL (7-18); eGFR NON AFRICAN AMERICAN > 90 mL/min (90-120)
[2019-04-20 06:55] LABS: POTASSIUM - SERUM 2.9 mmol/L (3.5-5.1)
[2019-04-20 09:43] VITALS: BP 124/73
--- NOTE | 2019-04-20 14:12 | NUR ---
PT ALERT X 4. BREATH SOUNDS CLEAR BILAT, 3L O2 PER NC. TELEMETRY IN PLACE. IV TO LEFT HAND, PATENT, DRESSING CDI. SKIN TO LOWER LEGS RED AND DRY. 2 WATERY BM'S. BED LOW, CALL LIGHT IN REACH. NO OTHER NEEDS AT THIS TIME.
[2019-04-20 14:17] VITALS: BP 129/74
[2019-04-20 16:30] LABS: MAGNESIUM - SERUM 1.7 mg/dL (1.8-2.4)
[2019-04-20 16:32] LABS: POTASSIUM - SERUM 2.9 mmol/L (3.5-5.1)
[2019-04-20 17:44] VITALS: BP 118/72
[2019-04-20 20:00] VITALS: BP 117/72
[2019-04-21] VITALS: BP 135/69
[2019-04-21 04:00] VITALS: BP 138/67
[2019-04-21 07:21] LABS: CALC OSMOLALITY 291 mosm/kg (275-300); CHLORIDE - SERUM 106 mmol/L (98-107); CREATININE - SERUM 0.9 mg/dL (0.6-1.3); GLUCOSE 107 mg/dL (74-106); MAGNESIUM - SERUM 1.8 mg/dL (1.8-2.4); POTASSIUM - SERUM 3.1 mmol/L (3.5-5.1); SODIUM 146 mmol/L (136-145); UREA NITROGEN 14 mg/dL (7-18); eGFR NON AFRICAN AMERICAN 86 mL/min (90-120)
[2019-04-21 07:47] LABS: BASOPHILS 0.2 % (0-2); EOSINOPHILS 2.7 % (0-7); HEMATOCRIT 33.8 % (42.0-54.0); HEMOGLOBIN 11.1 g/dL (13.5-17.5); IMMATURE GRANULOCYTES 0.2 % (0-5); LYMPHOCYTES 18.9 % (15-50); MCH 31.8 pg (26.0-34.0); MCHC 32.8 g/dL (31.0-37.0); MCV 96.8 fL (80.0-100.0); MEAN PLATELET VOLUME 10.4 fL (7.4-10.4); MONOCYTES 8.1 % (2-11); NEUTROPHILS 69.9 % (40-80); PLATELET COUNT 155 10x3/uL (130-400); RBC 3.49 10x6/uL (4.20-6.10); RDW 14.9 % (11.5-14.5); WBC 5.6 10x3/uL (4.8-10.8)
[2019-04-21 10:13] VITALS: BP 142/80
[2019-04-21 13:54] VITALS: BP 135/69
[2019-04-21 21:25] VITALS: BP 129/84
[2019-04-22 01:19] VITALS: BP 125/73
[2019-04-22 05:30] LABS: BASOPHILS 0.3 % (0-2); EOSINOPHILS 3.6 % (0-7); HEMATOCRIT 33.5 % (42.0-54.0); HEMOGLOBIN 11.2 g/dL (13.5-17.5); IMMATURE GRANULOCYTES 0.3 % (0-5); LYMPHOCYTES 21.1 % (15-50); MCH 31.8 pg (26.0-34.0); MCHC 33.4 g/dL (31.0-37.0); MCV 95.2 fL (80.0-100.0); MEAN PLATELET VOLUME 10.1 fL (7.4-10.4); NEUTROPHILS 67.7 % (40-80); PLATELET COUNT 161 10x3/uL (130-400); RBC 3.52 10x6/uL (4.20-6.10); RDW 14.9 % (11.5-14.5); WBC 5.8 10x3/uL (4.8-10.8)
[2019-04-22 05:59] LABS: CALC OSMOLALITY 290 mosm/kg (275-300); CALCIUM 8.7 mg/dL (8.5-10.1); CARBON DIOXIDE 30.4 mmol/L (21.0-32.0); CHLORIDE - SERUM 108 mmol/L (98-107); CREATININE - SERUM 0.8 mg/dL (0.6-1.3); GLUCOSE 101 mg/dL (74-106); MAGNESIUM - SERUM 1.7 mg/dL (1.8-2.4); SODIUM 147 mmol/L (136-145); UREA NITROGEN 11 mg/dL (7-18); eGFR NON AFRICAN AMERICAN > 90 mL/min (90-120)
[2019-04-22 06:02] LABS: POTASSIUM - SERUM 3.6 mmol/L (3.5-5.1)
--- NOTE | 2019-04-22 07:55 | NUR ---
PT ALERT X 4. BREATH SOUNDS CLEAR BILAT, 3L O2 PER NC. IV TO RIGHT HAND, PATENT, DRESSING CDI. IV TO RIGHT FOREARM, SALINE LOCKED. ABDOMEN DISTENDED AND FIRM. BED LOW, CALL LIGHT IN REACH. NO OTHER NEEDS AT THIS TIME.
[2019-04-22 09:01] VITALS: BP 137/85
--- NOTE | 2019-04-22 11:25 | NUR ---
Pt has a healing stage 2 pressure injury on right buttock measuring 1.5cm x 1cm x 0.1cm. Also a healing stage 2 pressure injury on left buttock measuring 1cm x 1cm x 0.1cm. Calmoseptine cream is being applied twice daily and as needed with pericare. Recommend continuing use of Calmoseptine. Wound care will continue monitoring.
--- NOTE | 2019-04-22 12:05 | NUR ---
NUTRITION F/U DIET ADVANCED TO ADA SOFT/BLAND. WILL PROVIDE CURRENT DIET, MONITOR PO INTAKE. RD FOLLOWING
[2019-04-22 13:05] VITALS: BP 129/70
[2019-04-22 17:15] VITALS: BP 118/78
[2019-04-22 20:00] VITALS: BP 124/81
--- NOTE | 2019-04-22 20:00 | NUR ---
ALERT RESTING IN BED, DENIES PAIN OR NEEDS AT THIS TIME SEE SHIFT ASSESSMENT CALL LIGHT IN REACH
[2019-04-23 03:44] VITALS: BP 131/80
[2019-04-23 05:39] LABS: BASOPHILS 0.2 % (0-2); EOSINOPHILS 3.6 % (0-7); HEMATOCRIT 32.4 % (42.0-54.0); HEMOGLOBIN 10.6 g/dL (13.5-17.5); IMMATURE GRANULOCYTES 0.6 % (0-5); LYMPHOCYTES 23.8 % (15-50); MCH 31.4 pg (26.0-34.0); MCHC 32.7 g/dL (31.0-37.0); MCV 95.9 fL (80.0-100.0); MEAN PLATELET VOLUME 9.8 fL (7.4-10.4); MONOCYTES 7.8 % (2-11); PLATELET COUNT 160 10x3/uL (130-400); RBC 3.38 10x6/uL (4.20-6.10); RDW 14.7 % (11.5-14.5); WBC 5.3 10x3/uL (4.8-10.8)
[2019-04-23 06:01] LABS: CALC OSMOLALITY 284 mosm/kg (275-300); CALCIUM 8.7 mg/dL (8.5-10.1); CHLORIDE - SERUM 107 mmol/L (98-107); CREATININE - SERUM 0.8 mg/dL (0.6-1.3); GLUCOSE 98 mg/dL (74-106); MAGNESIUM - SERUM 1.8 mg/dL (1.8-2.4); PHOSPHOROUS 2.4 mg/dL (2.5-4.9); POTASSIUM - SERUM 3.2 mmol/L (3.5-5.1); SODIUM 144 mmol/L (136-145); eGFR NON AFRICAN AMERICAN > 90 mL/min (90-120)
[2019-04-23 06:03] LABS: UREA NITROGEN 8 mg/dL (7-18)
[2019-04-23 06:26] VITALS: BP 131/80
--- NOTE | 2019-04-23 07:48 | NUR ---
PT IS RESTING IN BED WITH EYES OPEN. RESPIRATIONS ARE EVEN AND UNLABORED. PT REPORTS "FULLNESS" IN ABDOMEN. BS HYPOACTIVE X 4. PT IS DISTENDED. PT REPORTS SLIGHT DISCOMFORT UPON PALPATION. PT WITH BILATERAL LOWER EXTREMITY +3 PITTING EDEMA AND LEFT UPPER EXTREMITY GENERALIZED EDEMA. ALL PULSES ARE PALPABLE. PT DENIES PRESENCE OF NUMBNESS/TINGLING IN EXTREMITIES. PT DENIES FURTHER NEEDS. BED IS IN THE LOWEST POSITION. CALL LIGHT AND BEDSIDE TABLE ARE WITHIN REACH. SIDE RAILS X 2. WILL CONT TO MONITOR.
[2019-04-23 09:30] VITALS: BP 133/90
[2019-04-23 12:49] VITALS: BP 134/78
[2019-04-23 17:44] VITALS: BP 128/75
--- NOTE | 2019-04-23 20:00 | NUR ---
ALERT RESTING IN BED WATCHING TV, SEE SHIFT ASSESSMENT CALL LIGHT IN REACH
[2019-04-23 20:40] VITALS: BP 119/65
[2019-04-24 04:48] VITALS: BP 135/81
[2019-04-24 06:20] LABS: BASOPHILS 0.5 % (0-2); EOSINOPHILS 3.3 % (0-7); HEMATOCRIT 32.2 % (42.0-54.0); HEMOGLOBIN 10.7 g/dL (13.5-17.5); IMMATURE GRANULOCYTES 0.3 % (0-5); LYMPHOCYTES 22.7 % (15-50); MCH 31.8 pg (26.0-34.0); MCHC 33.2 g/dL (31.0-37.0); MCV 95.5 fL (80.0-100.0); MEAN PLATELET VOLUME 10.1 fL (7.4-10.4); MONOCYTES 7.5 % (2-11); NEUTROPHILS 65.7 % (40-80); PLATELET COUNT 172 10x3/uL (130-400); RBC 3.37 10x6/uL (4.20-6.10); RDW 14.8 % (11.5-14.5); WBC 5.8 10x3/uL (4.8-10.8)
[2019-04-24 06:46] LABS: CALC OSMOLALITY 282 mosm/kg (275-300); CARBON DIOXIDE 30.4 mmol/L (21.0-32.0); CHLORIDE - SERUM 106 mmol/L (98-107); CREATININE - SERUM 0.9 mg/dL (0.6-1.3); GLUCOSE 98 mg/dL (74-106); MAGNESIUM - SERUM 1.8 mg/dL (1.8-2.4); POTASSIUM - SERUM 3.4 mmol/L (3.5-5.1); SODIUM 143 mmol/L (136-145); UREA NITROGEN 8 mg/dL (7-18); eGFR NON AFRICAN AMERICAN 86 mL/min (90-120)
[2019-04-24 08:52] VITALS: BP 136/83
--- NOTE | 2019-04-24 12:00 | NUR ---
Rehab Note- Acute Inpatient Rehab prescreen order received. Visited with the patient, stated he did well with his last acute inpatient rehab stay and would like a short stay to regain his strength in inpatient acute rehab prior to discharging home. Will accept the patient when medically stable and ready for discharge from the acute hospital. Thank you for this referral! Jazmín Carlos RN Clincial Liaison, [facility] Rehab
[2019-04-24 12:18] VITALS: BP 126/77
[2019-04-24 14:10] LABS: OVA + PARASITE EXAM Final report (())
--- NOTE | 2019-04-24 15:17 | NUR ---
I have reviewed this patient and I concur with the Shift Assessment completed by the Licensed Practical Nurse today this shift.
[2019-04-24 17:44] VITALS: BP 128/74
--- NOTE | 2019-04-24 19:30 | NUR ---
LYING IN BED. ALERT AND ORIENTED X4. RESP IRREG, NONLABORED. O2 @ 3L/NC. ABD DISTENDED. BS PRESENT X4 QUADS. ENTERIC ISO PRECAUTIONS FOR CDIFF. IV INFUSING IN RT HAND WITHOUT DIFF. SL NOTED TO RT FOREARM. EDEMA NOTED TO BLE. TELEMETRY SHOWS AFIB WITH RATE OF 88. REFUSES PLEXIBOOTS AT THIS TIME. DENIES PAIN. NO DISTRESS. CL IN REACH.
[2019-04-24 21:14] VITALS: BP 126/74
[2019-04-25 01:15] VITALS: BP 134/70
[2019-04-25 04:54] LABS: BASOPHILS 0.4 % (0-2); EOSINOPHILS 3.6 % (0-7); HEMATOCRIT 30.9 % (42.0-54.0); HEMOGLOBIN 10.3 g/dL (13.5-17.5); IMMATURE GRANULOCYTES 0.5 % (0-5); LYMPHOCYTES 23.1 % (15-50); MCH 31.7 pg (26.0-34.0); MCHC 33.3 g/dL (31.0-37.0); MCV 95.1 fL (80.0-100.0); MEAN PLATELET VOLUME 9.7 fL (7.4-10.4); MONOCYTES 8.6 % (2-11); NEUTROPHILS 63.8 % (40-80); PLATELET COUNT 168 10x3/uL (130-400); RBC 3.25 10x6/uL (4.20-6.10); RDW 14.4 % (11.5-14.5); WBC 5.6 10x3/uL (4.8-10.8)
[2019-04-25 04:55] VITALS: BP 137/76
[2019-04-25 05:09] LABS: CALC OSMOLALITY 283 mosm/kg (275-300); CALCIUM 8.7 mg/dL (8.5-10.1); CARBON DIOXIDE 31.2 mmol/L (21.0-32.0); CHLORIDE - SERUM 107 mmol/L (98-107); CREATININE - SERUM 0.8 mg/dL (0.6-1.3); GLUCOSE 94 mg/dL (74-106); POTASSIUM - SERUM 3.5 mmol/L (3.5-5.1); SODIUM 143 mmol/L (136-145); UREA NITROGEN 9 mg/dL (7-18); eGFR NON AFRICAN AMERICAN > 90 mL/min (90-120)
--- NOTE | 2019-04-25 08:45 | NUR ---
PT UP TO BSC AND BACK TO BED WITH ASSIST X 1. NO ACUTE DISTRESS NOTED. O2 @ 3L NC IN PLACE. SALINE LOC TO RIGHT HAND, SITE WITHOUT REDNESS OR EDEMA. IV TO RIGHT FOREARM WITH NS W/ 40KCL @ 75 ML/HR INFUSING VIA PUMP. SITE WITHOUT REDNESS OR EDEMA. DENIES PAIN AT THIS TIME. REFUSES PLEXI PULSES AT THIS TIME. DENIES FURTHER NEEDS. CL WITHIN REACH. ENCOURAGED TO CALL WITH NEEDS. CONTINUE POC
[2019-04-25 09:38] VITALS: BP 137/71
[2019-04-25] MEDS ORDERED: Vancomycin HCl PO (12:05)
--- NOTE | 2019-04-25 13:17 | MORECARE ---
CASE MANAGEMENT DISCHARGE SUMMARY PATIENT: ANGEL RAI N UNIT: [id number] ADM DATE: 04/17/19 AGE: 78 : 38 SEX: M ROOM/BED: D.2202 AUTHOR: VANI ROJO PHYSICIAN: REFERRING PHYSICIAN: LENA SALES DO DATE OF SERVICE: 04/25/19 Discharge Plan Patient Name: ANGEL RAI Facility: [facility]:[place] : 1940 Planned Disposition: Inpatient Rehab Anticipated Discharge Date: Discharge Date: Expected LOS: Initial Reviewer: [email or web address] Initial Review Date: 04/17/2019 Generated: 04/25/19 2:17 pm DCP- Discharge Planning Updated by [email or web address]: Yesi Ibrahim on 04/19/19 3:[address] Attempted to see the patient at 2 separate occasions and he was sleeping. CM will attempt to see him again at a later time. DCPIA - Discharge Planning Initial Assessment Updated by [id number]: Yesi Ibrahim on 04/25/19 1:17 pm * Is the patient Alert and Oriented? Yes * How many steps to enter\exit or inside your home? * PCP GARRICK * Pharmacy [facility] * Preadmission Environment Home with Family * ADLs Partial Dependent * Partial ADLs (Assistance needed) Ambulation Bathing * Equipment Bedside [facility] Bed Oxygen Rolling Walker Shower Chair Walker * List name and contact numbers for known caregivers / representatives who currently or will assist patient after discharge: MARIANA WATTS [phone] * Verbal permission to speak to the caregivers and representatives has been obtained from the patient. N/A * Community resources currently utilized Home Health * Please name any agencies selected above. [facility] * Additional services required to return to the preadmission environment? No * Can the patient safely return to the preadmission environment? Yes * Has this patient been hospitalized within the prior 30 days at any hospital? No Last DP export: 04/19/19 3:15 p Patient Name: ANGEL RAI Page [phone] at 1317 All edits/amendments must be made on the electronic document DICTATION DATE: 04/25/191316 CANAL BOAT OPERATOR: ADRIANA 04/25/191316 RPT#: [id number] DC DATE: STATUS: ADM IN [facility] [address] [place] [address] END OF REPORT
--- NOTE | 2019-04-25 13:26 | MORECARE ---
CASE MANAGEMENT DISCHARGE SUMMARY PATIENT: ANGEL RAI UNIT: [id number] ADM DATE: 04/17/19 AGE: 78 : 38 SEX: M ROOM/BED: D.2202 AUTHOR: VANI ROJO PHYSICIAN: REFERRING PHYSICIAN: LENA SALES DO DATE OF SERVICE: 04/25/19 Discharge Plan Patient Name: ANGEL RAI Facility: [facility]:[place] : 1940 Planned Disposition: Inpatient Rehab Anticipated Discharge Date: Discharge Date: Expected LOS: Initial Reviewer: [id number] Initial Review Date: 04/17/2019 Generated: 04/25/19 2:26 pm Comments DCP- Discharge Planning Updated by [id number]: Yesi Ibrahim on 04/25/19 12:[address] Patient Name: ANGEL RAI Admission Status: ER Accout number: [id number] Admission Date: 04-17-2019 : 1940 Admission Diagnosis:ILEUS, UNSPECIFIED Attending: LENA SALES Current LOS: 8 Anticipated DC Date: Planned Disposition: Inpatient Rehab Primary Insurance: MEDICARE A & B Discharge Planning Comments: CM met with patient to complete initial dc planning assessment. CM educated patient on the CM role and verbal consent given by patient to complete assessment. Patient lives at home with his 2 grandsons who help him. He stated that he needs help with bathing and getting out of bed. Patient will be discharging today to inpatient rehab & feels this is a safe discharge. CM discussed availability of home health, rehab services, and medical equipment. He is current with [employer]. Patient has a Home O2 (unsure the company) hospital bed, walker, shower chair & BSC. [facility] served and explained and MONA obtained for marin. Patient denied known discharge needs at this time. CM will continue to follow and will assist as needed with dc plans/needs. System Manager: Yesi Ibrahim DCP- Discharge Planning Updated by [id number]: Yesi Ibrahim on 04/19/19 3:[address] Attempted to see the patient at 2 separate occasions and he was sleeping. CM will attempt to see him again at a later time. DCPIA - Discharge Planning Initial Assessment Updated by [id number]: Yesi Ibrahim on 04/25/19 1:17 pm * Is the patient Alert and Oriented? Yes * How many steps to enter\exit or inside your home? * PCP GARRICK * [facility]acy [facility] [place] [place] * Preadmission Environment Home with Family * ADLs Partial Dependent * Partial ADLs (Assistance needed) Ambulation Bathing * Equipment Bedside [facility] Bed Oxygen Rolling Walker Shower Chair Walker * List name and contact numbers for known caregivers / representatives who currently or will assist patient after discharge: MARIANA WATTS [phone] * Verbal permission to speak to the caregivers and representatives has been obtained from the patient. N/A * Community resources currently utilized Home Health * Please name any agencies selected above. [facility] * Additional services required to return to the preadmission environment? No * Can the patient safely return to the preadmission environment? Yes * Has this patient been hospitalized within the prior 30 days at any hospital? No Coverage Notice Reviewer: [email or web address] Maureen Ibrahim Notice Issued Date-Time: 04/25/2019 13:00 Notice Type: IM Discharge Notice Notice Delivered To: Patient Relationship to Patient: Process Development Manager Name: Delivery Method: HAND - Hand Delivered Toma Days: Prior Verbal Notification: Recipient Understood Notice: Yes Recipient Signature: Yes Med Rec Note Co-signed by Attending: Coverage Notice Comment: Reviewer: [id number] Maureen Ibrahim Notice Issued Date-Time: 04/25/2019 13:00 Notice Type: Patient Choice Letter Notice Delivered To: Relationship to Patient: Process Development Manager Name: Delivery Method: - Toma Days: Prior Verbal Notification: Recipient Understood Notice: Recipient Signature: Med Rec Note Co-signed by Attending: Coverage Notice Comment: Last DP export: 04/25/19 12:17 p Patient Name: ANGEL RAI Page 34915 at 1326 All edits/amendments must be made on the electronic document DICTATION DATE: 04/25/19 1326 ANTISQUEAK WORKER: ADRIANA 04/25/19 1326 RPT#: [id number] DC DATE: STATUS: ADM IN [facility] [address] [place] [address] END OF REPORT
[2019-04-25 13:55] VITALS: BP 130/75
--- NOTE | 2019-04-29 08:43 | MORECARE ---
CASE MANAGEMENT DISCHARGE SUMMARY PATIENT: ANGEL RAI UNIT: [id number] ADM DATE: 04/17/19 AGE: 78 : 38 SEX: M ROOM/BED: D.2202 AUTHOR: VNAI ROJO PHYSICIAN: REFERRING PHYSICIAN: LENA SALES DO DATE OF SERVICE: 04/29/19 Discharge Plan Patient Name: ANGEL RAI Facility: [facility]:[place] : 1940 Planned Disposition: Inpatient Rehab Anticipated Discharge Date: Discharge Date: 04/25/2019 Expected LOS: Initial Reviewer: [id number] Initial Review Date: 04/17/2019 Generated: 04/29/19 9:43 am Comments DCP- Discharge Planning Updated by [id number]: Yesi Ibrahim on 04/25/19 12:[address] Patient Name: ANGEL RAI Admission Status: ER Accout number: [id number] Admission Date: 04-17-2019 : 1940 Admission Diagnosis:ILEUS, UNSPECIFIED Attending: LENA SALES Current LOS: 8 Anticipated DC Date: Planned Disposition: Inpatient Rehab Primary Insurance: MEDICARE A & B Discharge Planning Comments: CM met with patient to complete initial dc planning assessment. CM educated patient on the CM role and verbal consent given by patient to complete assessment. Patient lives at home with his 2 grandsons who help him. He stated that he needs help with bathing and getting out of bed. Patient will be discharging today to inpatient rehab & feels this is a safe discharge. CM discussed availability of home health, rehab services, and medical equipment. He is current with [employer]. Patient has a Home O2 (uns[employer] the company) hospital bed, walker, shower chair & BSC. [facility] served and explained and MONA obtained for marin. Patient denied known discharge needs at this time. CM will continue to follow and will assist as needed with dc plans/needs. Fisheries Manager: Yesi Ibrahim DCP- Discharge Planning Updated by [id number]: Yesi Ibrahim on 04/19/19 3:[address] Attempted to see the patient at 2 separate occasions and he was sleeping. CM will attempt to see him again at a later time. DCPIA - Discharge Planning Initial Assessment Updated by [email or web address]: Yesi Ibrahim on 04/25/19 1:17 pm * Is the patient Alert and Oriented? Yes * How many steps to enter\exit or inside your home? * PCP GARRICK * [facility] * Preadmission Environment Home with Family * ADLs Partial Dependent * Partial ADLs (Assistance needed) Ambulation Bathing * Equipment Bedside [facility] Bed Oxygen Rolling Walker Shower Chair Walker * List name and contact numbers for known caregivers / representatives who currently or will assist patient after discharge: MARIANA WATTS [phone] * Verbal permission to speak to the caregivers and representatives has been obtained from the patient. N/A * Community resources currently utilized Home Health * Please name any agencies selected above. [facility] * Additional services required to return to the preadmission environment? No * Can the patient safely return to the preadmission environment? Yes * Has this patient been hospitalized within the prior 30 days at any hospital? No Coverage Notice Reviewer: [id number] Maureen Ibrahim Notice Issued Date-Time: 04/25/2019 13:00 Notice Type: IM Discharge Notice Notice Delivered To: Patient Relationship to Patient: Cobol Mainframe Developer Name: Delivery Method: HAND - Hand Delivered Toma Days: Prior Verbal Notification: Recipient Understood Notice: Yes Recipient Signature: Yes Med Rec Note Co-signed by Attending: Coverage Notice Comment: Reviewer: [id number] Maureen Ibrahim Notice Issued Date-Time: 04/25/2019 13:00 Notice Type: Patient Choice Letter Notice Delivered To: Relationship to Patient: Cobol Mainframe Developer Name: Delivery Method: - Toma Days: Prior Verbal Notification: Recipient Understood Notice: Recipient Signature: Med Rec Note Co-signed by Attending: Coverage Notice Comment: Last DP export: 04/25/19 12:26 p Patient Name: ANGEL RAI Page [id number] at 0843 All edits/amendments must be made on the electronic document DICTATION DATE: 04/29/19841 GRADE AND CENTER MARKER: ADRIANA 04/29/1944 RPT#: [id number] DC DATE:04/25/19 STATUS: DIS IN [place] [address] [place] [address] END OF REPORT
== END 2019-04-25 17:12 | DRG 372 ==
LOC: D.ER 13:59 → D.MS 18:22
PROVIDERS: Family Medicine; Internal Medicine Nephrology; Surgery; ADMIT Family Medicine; ATTEND Family Medicine
DX: A04.72 Enterocolitis due to Clostridium difficile, not specified as recurrent (principal); K56.7 Ileus, unspecified; I50.32 Chronic diastolic (congestive) heart failure; E87.6 Hypokalemia; D64.9 Anemia, unspecified; I48.91 Unspecified atrial fibrillation; K21.9 Gastro-esophageal reflux disease without esophagitis; L89.329 Pressure ulcer of left buttock, unspecified stage; L89.322 Pressure ulcer of left buttock, stage 2; L89.312 Pressure ulcer of right buttock, stage 2; R14.0 Abdominal distension (gaseous)

== ENCOUNTER 2019-04-25 17:25 | Inpatient (IN) | payer MEDICARE, OTHER ==
[~2019-04-25] VITALS: Ht 180.3 cm; Wt 127.5 kg
[~2019-04-25 17:25] MED LIST changes: +Vancomycin HCl PO
[2019-04-25 19:00] VITALS: BP 133/71
--- NOTE | 2019-04-25 20:02 | NUR ---
ADMITTED TO PHYSICAL REHAB FOR SERVICES OF DR NO. AWAKE AND ALERT. RESTING IN BED. RESPIRATIONS UNLABORED. ABDOMEN DISTENDED AND BOWEL SOUNDS HYPOACTIVE IN ALL QUADS. STATES HE HAD A BM TODAY. NO ACUTE DISTRESS NOTED. CALL LIGHT IN REACH.
[2019-04-25 23:12] VITALS: BP 133/71; BMI 39.2
--- NOTE | 2019-04-26 04:51 | NUR ---
RESTING IN BED WITH NO DISTRESS NOTED. QUIET HOURS. REMAINS IN ENTERIC PRECAUTIONS. NO NEEDS VOICED. CALL LIGHT IN REACH.
[2019-04-26 08:20] VITALS: BP 119/76
[2019-04-26 08:58] LABS: BASOPHILS 0.4 % (0-2); EOSINOPHILS 3.1 % (0-7); HEMATOCRIT 32.4 % (42.0-54.0); HEMOGLOBIN 10.6 g/dL (13.5-17.5); IMMATURE GRANULOCYTES 0.4 % (0-5); LYMPHOCYTES 18.3 % (15-50); MCH 31.4 pg (26.0-34.0); MCHC 32.7 g/dL (31.0-37.0); MCV 95.9 fL (80.0-100.0); MEAN PLATELET VOLUME 9.8 fL (7.4-10.4); MONOCYTES 6.4 % (2-11); NEUTROPHILS 71.4 % (40-80); PLATELET COUNT 181 10x3/uL (130-400); RBC 3.38 10x6/uL (4.20-6.10); RDW 14.4 % (11.5-14.5); WBC 6.7 10x3/uL (4.8-10.8)
[2019-04-26 09:14] LABS: CALC OSMOLALITY 282 mosm/kg (275-300); CALCIUM 9.2 mg/dL (8.5-10.1); CARBON DIOXIDE 33.6 mmol/L (21.0-32.0); CHLORIDE - SERUM 104 mmol/L (98-107); CREATININE - SERUM 0.9 mg/dL (0.6-1.3); GLUCOSE 101 mg/dL (74-106); POTASSIUM - SERUM 3.3 mmol/L (3.5-5.1); SODIUM 142 mmol/L (136-145); eGFR NON AFRICAN AMERICAN 86 mL/min (90-120)
[2019-04-26 09:15] LABS: UREA NITROGEN 13 mg/dL (7-18)
--- NOTE | 2019-04-26 09:38 | NUR ---
PT AM MEDS ADMINSITERED. PT DENIES NEEDS. ASSESSMENT COMPLETE. WCTM.
[2019-04-26 10:06] VITALS: BMI 39.2
--- NOTE | 2019-04-26 18:21 | NUR ---
PT RESTING IN BED, O2 IN PLACE. PT DENIES NEEDS. WCTM.
--- NOTE | 2019-04-26 19:46 | NUR ---
PT LYING IN BED. CALL LIGHT IN REACH. DENIES NEEDS AT THIS TIME. BED IN LOW SIDE RAILS X2. ON CONTACT ISOLATION. RESP EVEN AND UNLABORED. A/O X4. 2L OF O2. WILL CONTINUE TO MONITOR.
[2019-04-26 19:59] VITALS: BP 133/71
--- NOTE | 2019-04-26 23:46 | NUR ---
PT LYING IN BED RESTING WITH EYES CLOSED. NO DISTRESS NOTED. CALL LIGHT IN REACH. WILL CONTINUE TO MONITOR.
--- NOTE | 2019-04-27 00:09 | NUR ---
RESTING IN BED BUT AWAKE WATCHING TV. NO DISTRESS NOTED. CALL LIGHT IN REACH.
--- NOTE | 2019-04-27 03:00 | NUR ---
RESTING QUIETLY. CALL LIGHT IN REACH. NO DISTRESS NOTED. WCTM
--- NOTE | 2019-04-27 05:36 | NUR ---
PT RESTING QUIETLY. CALL LIGHT IN REACH. NO DISTRESS NOTED. WCTM
--- NOTE | 2019-04-27 07:42 | NUR ---
ALERT AND ORIENTED. ENTERIC ISOLATION FOR C DIFF. NO DISTRESS NOTED. CL IN REACH.
[2019-04-27 08:51] VITALS: BP 105/81
[2019-04-27 15:28] VITALS: BP 139/83
--- NOTE | 2019-04-27 17:32 | NUR ---
NO CHANGE IN ASSESSMENT. RESP EVEN AND UNLABORED. CL IN REACH.
--- NOTE | 2019-04-27 19:00 | NUR ---
PATIENT ALERT AND ORIENTED. RESTING QUIETLY IN BED WATCHING TV. NO COMPLAINTS AT THIS TIME. [facility]. CALL LIGHT WITHIN REACH.
--- NOTE | 2019-04-27 20:00 | NUR ---
RADIOLOGY HERE TO DO XRAY.
[2019-04-27 21:43] VITALS: BP 132/73
--- NOTE | 2019-04-27 21:53 | NUR ---
PATIENT SLEEPING AT THIS TIME.
--- NOTE | 2019-04-27 21:54 | NUR ---
PATIENT SLEEPING AT THIS TIME.
--- NOTE | 2019-04-27 23:35 | NUR ---
ASSISTED PATIENT UP TO BATHROOM BECAUSE HE THOUGHT HE NEEDED TO HAVE A BM BUT WAS UNABLE TO HAVE ONE.
--- NOTE | 2019-04-28 08:21 | NUR ---
CALLED DR WILTON GRANT AND REQUESTED CALL BACK TO GIVE RESULTS OF ABD XRAY.
[2019-04-28 08:35] VITALS: BP 141/89
--- NOTE | 2019-04-28 10:15 | NUR ---
IN ISOLATION FOR C DIFF. NO DISTRESS NOTED. CALLED DR NO X2 TO REPORT ABD XRAY RESULTS. AWAITING CALL BACK. STOMACH IS DISTENTED AND FIRM. CL IN REACH.
--- NOTE | 2019-04-28 12:09 | NUR ---
SPOKE WITH DR NO. CALLED FOR CONSULT TO DR BETANCOURT.
--- NOTE | 2019-04-28 15:43 | NUR ---
NO CHANGE IN ASSESSMENT. SITTING IN CHAIR. NO C/O PAIN AT THIS TIME. SHOWER GIVEN PER NURSING. CL IN REACH.
--- NOTE | 2019-04-28 19:49 | NUR ---
REPORT RECIEVED AND ROUNDING COMPLETE. PATIENT IS LAYING IN BED, PATIENT COMPLAINS OF ABD DISCOMFORT. PATIENT STATES THAT DOCTOR IS AWARE AND THAT HE CANT WAIT UNTIL TOMORROW WHEN HE GWT ST O SPEAK WITH A GI DOCTOR. PT IS SHOWING NO S/SX OF DISTRESS AT THIS TIME. PATIENT STATES HE HAS NO OTHER NEEDS AT THIS TIME. CALL LIGHT WITHIN REACH AND BED IN LOWEST POSITION.
[2019-04-28 20:42] VITALS: BP 120/72
--- NOTE | 2019-04-28 21:29 | NUR ---
PATIENT SITTING UP IN BED WATCHING TV. NO COMPLAINTS AT THIS TIME.
--- NOTE | 2019-04-28 21:32 | NUR ---
ASIISTED PATIENT TO THE BATHROOM THEN BACK TO BED. PATIENT WAS ABLE TO PIVOT AND GET INTO AND OUT OF WHEELCHAIR WELL. PATIENT HAS SMALL LOOSE BOWEL MOVEMENT. NO OTHER NEEDS AT THIS TIME. CALL LIGHT WITHIN REACH
--- NOTE | 2019-04-28 23:09 | NUR ---
PATIENT LAYING IN BED WATCHING TV. PATIENT STATES HE HAS NO NEEDS AT THIS TIME. CALL LIGHT WITHIN REACH AND BED IN LOWEST POSITION.
--- NOTE | 2019-04-29 01:11 | NUR ---
JESSICA LAYING IN BED WATCHING TV. PATIENT STATES NO NEEDS AT THIS TIME. CALL LIGHT WITHIN REACH.
--- NOTE | 2019-04-29 04:23 | NUR ---
PATIENT IS LAYING IN BED EYES CLOSED AND BRETHING EVEN AND UNLABORED. CALL LIGTH WITHIN REACH
[2019-04-29 06:16] LABS: BASOPHILS 0.4 % (0-2); EOSINOPHILS 2.5 % (0-7); HEMATOCRIT 32.6 % (42.0-54.0); HEMOGLOBIN 10.9 g/dL (13.5-17.5); IMMATURE GRANULOCYTES 0.4 % (0-5); MCH 31.3 pg (26.0-34.0); MCHC 33.4 g/dL (31.0-37.0); MCV 93.7 fL (80.0-100.0); MEAN PLATELET VOLUME 9.7 fL (7.4-10.4); MONOCYTES 9.7 % (2-11); PLATELET COUNT 182 10x3/uL (130-400); RBC 3.48 10x6/uL (4.20-6.10); RDW 14.4 % (11.5-14.5); WBC 5.7 10x3/uL (4.8-10.8)
[2019-04-29 06:30] LABS: CALC OSMOLALITY 277 mosm/kg (275-300); CALCIUM 9.4 mg/dL (8.5-10.1); CARBON DIOXIDE 35.5 mmol/L (21.0-32.0); CHLORIDE - SERUM 99 mmol/L (98-107); CREATININE - SERUM 0.8 mg/dL (0.6-1.3); GLUCOSE 99 mg/dL (74-106); SODIUM 140 mmol/L (136-145); UREA NITROGEN 10 mg/dL (7-18); eGFR NON AFRICAN AMERICAN > 90 mL/min (90-120)
[2019-04-29 06:39] LABS: POTASSIUM - SERUM 2.5 mmol/L (3.5-5.1)
--- NOTE | 2019-04-29 07:50 | NUR ---
RECEIVED REPORT. SITTING UP IN BED ALERT AND ORIENTED X3. DENIES ANY NEEDS OR PAIN. RR EVEN AND UNLABORED. CALL LIGHT WITHIN REACH, FALL PRECAUTIONS IN PLACE. WILL CONTINUE TO MONITOR
[2019-04-29 08:30] VITALS: BP 138/78
--- NOTE | 2019-04-29 09:20 | NUR ---
RD follow up: Pt on isolation precautions for C. diff Diabetic diet 75% PO intake observed Pt reported some nausea but no episodes of vomiting. Pt has good appetite despite nausea. 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 Will continue to monitor and follow up per protocol.
--- NOTE | 2019-04-29 09:48 | NUR ---
IN THERAPY GYM WITH OT WILL BE IN THERAPY UNTIL NOON
[2019-04-29 13:00] VITALS: Ht 180.3 cm; Wt 127.5 kg
--- NOTE | 2019-04-29 13:00 | NUR ---
STARTED IV RIGHT HAND 22G X2 ATTEMPTS. APPLIED DRESSING WITH DATE AND INITIALS. SITE FLUSHES AND DRAWS WITHOUT DIFFICULTY. PT TOLERATED WELL
--- NOTE | 2019-04-29 15:01 | NUR ---
SITTING UP IN W/C WATCHING TV. DENIES ANY NEEDS OR PAIN.
--- NOTE | 2019-04-29 16:33 | NUR ---
PATIENT C/O N/V AND ABD. PAIN. DISCHARGED FROM REHAB AND ADMITTED TO ACUTE FLOOR.
--- NOTE | 2019-04-29 17:51 | NUR ---
CALLED REPORT TO REGINA
--- NOTE | 2019-04-29 18:11 | NUR ---
DISCHARGING PT TO ACUTE CARE [facility]233 FOR COLONOSCOPY WITH TIVA TOMORROW BY DR. BETANCOURT.
--- NOTE | 2019-04-29 18:44 | NUR ---
TRANSPORTED VIA W/C TO [facility]
--- NOTE | 2019-05-01 17:00 | NUR ---
RECEIVED PT TO FLOOR VIA BED FROM [facility] TO RESUME REHAB CARE. PATIENT IS ALERT AND ORIENTED X4. ORIENTED TO ROOM AND BATHROOM. DENIES ANY NEEDS OR PAIN. CONTINUES ON 2L VIA [place]. CALL LIGHT WITHIN REACH, FALL PRECAUTIONS IN PLACE. WILL CONTINUE TO MONITOR
[2019-05-01 19:46] VITALS: BP 110/64
[2019-05-01 19:47] VITALS: BP 138/80
[2019-05-01 20:31] LABS: MAGNESIUM - SERUM 2.1 mg/dL (1.8-2.4)
[2019-05-01 20:33] LABS: POTASSIUM - SERUM 3.3 mmol/L (3.5-5.1)
--- NOTE | 2019-05-02 05:16 | NUR ---
RESTING IN BED. QUIET HOURS. NO DISTRESS NOTED. NO ACUTE CHANGES IN CONDITION. CALL LIGHT IN REACH.
[2019-05-02 06:42] LABS: BASOPHILS 0.3 % (0-2); EOSINOPHILS 3.1 % (0-7); HEMATOCRIT 31.3 % (42.0-54.0); HEMOGLOBIN 10.5 g/dL (13.5-17.5); IMMATURE GRANULOCYTES 0.2 % (0-5); LYMPHOCYTES 21.2 % (15-50); MCH 31.5 pg (26.0-34.0); MCHC 33.5 g/dL (31.0-37.0); MEAN PLATELET VOLUME 9.7 fL (7.4-10.4); MONOCYTES 7.5 % (2-11); NEUTROPHILS 67.7 % (40-80); PLATELET COUNT 191 10x3/uL (130-400); RBC 3.33 10x6/uL (4.20-6.10); RDW 14.2 % (11.5-14.5); WBC 5.8 10x3/uL (4.8-10.8)
[2019-05-02 07:01] LABS: CALC OSMOLALITY 278 mosm/kg (275-300); CALCIUM 8.9 mg/dL (8.5-10.1); CARBON DIOXIDE 32.9 mmol/L (21.0-32.0); CHLORIDE - SERUM 103 mmol/L (98-107); CREATININE - SERUM 0.9 mg/dL (0.6-1.3); GLUCOSE 104 mg/dL (74-106); POTASSIUM - SERUM 3.3 mmol/L (3.5-5.1); SODIUM 140 mmol/L (136-145); UREA NITROGEN 12 mg/dL (7-18); eGFR NON AFRICAN AMERICAN 86 mL/min (90-120)
[2019-05-02 08:12] VITALS: BP 127/74
--- NOTE | 2019-05-02 08:13 | NUR ---
PT RESTING IN BED WITH EYES OPEN CALL LIGHT IN REACH WILL MONITER
--- NOTE | 2019-05-02 11:37 | NUR ---
PATIENT ADMITTED TO REHAB FROM ACUTE FLOOR. DR. MCCAULEY IS HIS PCP, HE IS A CLIENT OF [facility]. DME AT HOME IS A BED, O2, WALKER, BEDSIDE COMMODE AND A SHOWER CHAIR. DISCHARGE PLANS ARE FOR HIM TO RETURN HOME WITH FAMILY. WILL CONTINUE TO FOLLOW WITH PATIENT
--- NOTE | 2019-05-02 16:37 | NUR ---
PT RESTING IN BED WITH EYES OPEN CALL LIGHT IN REACH PT WATCHING TV O PROBLEMS WILL MONITER
[2019-05-02 19:53] VITALS: BP 120/69
--- NOTE | 2019-05-02 20:00 | NUR ---
PATIENT RECEIVED SITTING UP IN BED WATCHING TV. PATIENT VITAL SIGNS & ASSESSMENT DONE. PATIENT GROIN RED. NYSTATIN APPLIED. BUTT BOTH SIDES OF COCCYX HEALING NO REDNESS, CALMOSEPTINE PER ORDER APPLIED. BED LOW. O2 2LNC. CALL LIGHT WITHIN REACH. WILL CONTINUE TO MONITOR.
--- NOTE | 2019-05-03 00:20 | NUR ---
PATIENT EYES CLOSED. RESPIRATIONS 18 & EVEN. BED LOW. URINAL WITHIN REACH. CALL LIGHT WITHIN REACH. WILL CONTINUE TO MONITOR.
--- NOTE | 2019-05-03 03:10 | NUR ---
PT IN BED LOWEST POSITION, EYES CLOSED AROUSES EASILY TO VOICE, RESPIRATIONS EVEN AND UNLABORED, NO NEEDS NOTED, FLUIDS AND CALL LIGHT WITHIN REACH.
[2019-05-03 06:52] LABS: CALC OSMOLALITY 281 mosm/kg (275-300); CALCIUM 9.3 mg/dL (8.5-10.1); CARBON DIOXIDE 31.1 mmol/L (21.0-32.0); CHLORIDE - SERUM 103 mmol/L (98-107); GLUCOSE 117 mg/dL (74-106); POTASSIUM - SERUM 3.5 mmol/L (3.5-5.1); SODIUM 141 mmol/L (136-145); UREA NITROGEN 13 mg/dL (7-18); eGFR NON AFRICAN AMERICAN 76 mL/min (90-120)
[2019-05-03 06:57] LABS: BASOPHILS 0.4 % (0-2); EOSINOPHILS 2.8 % (0-7); HEMATOCRIT 32.8 % (42.0-54.0); HEMOGLOBIN 10.9 g/dL (13.5-17.5); IMMATURE GRANULOCYTES 0.3 % (0-5); LYMPHOCYTES 24.6 % (15-50); MCH 31.5 pg (26.0-34.0); MCHC 33.2 g/dL (31.0-37.0); MCV 94.8 fL (80.0-100.0); MEAN PLATELET VOLUME 10.1 fL (7.4-10.4); MONOCYTES 5.4 % (2-11); NEUTROPHILS 66.5 % (40-80); PLATELET COUNT 214 10x3/uL (130-400); RBC 3.46 10x6/uL (4.20-6.10); RDW 14.5 % (11.5-14.5); WBC 7.1 10x3/uL (4.8-10.8)
--- NOTE | 2019-05-03 07:25 | NUR ---
RECEIVED REPORT. LYING IN BED EYES CLOSED RESTING. RR EVEN AND UNLABORED. CONTINUES ON 2L VIA NC. NO CONCERNS VOICED. C/O SOME ABDOMINAL DISCOMFORT. CALL LIGHT WITHIN REACH, FALL PRECAUTIONS IN PLACE. WILL CONTINUE MONITOR
[2019-05-03 08:00] VITALS: BP 131/66
--- NOTE | 2019-05-03 11:04 | NUR ---
IN THERAPY GYM PARTICIPATING IN PT WITH SARA. NO SIGNS OF DISTRESS NOTED
--- NOTE | 2019-05-03 15:27 | NUR ---
SPOKE WITH DAUGHTER AND SHE WOULD LIKE A REFERRAL TO [facility] AT TIME OF DISCHARGE. WILL CONTINUE TO FOLLOW WITH PATIENT.
--- NOTE | 2019-05-03 17:32 | NUR ---
SITTING UP ON SIDE OF BED EATING DINNER. NO FAMILY AT BEDSIDE NOTED. CONTINUES ON 2L VIA NC. NO SIGNS OF DISTRESS NOTED. CALL LIGHT WITHIN REACH, FALL PRECAUTIONS IN PLACE. WILL CONTINUE TO MONITOR
[2019-05-03 20:00] VITALS: BP 120/85
--- NOTE | 2019-05-03 20:00 | NUR ---
PATIENT RECEIVED SITTING UP IN BED WATCHING TV. PATIENT BED LOW. VITAL SIGNS & ASSESSMENT DONE. NO C/O PAIN OR DISTRESS. URINAL & CALL LIGHT WITHIN REACH. BE BED LOW. ALARM ON. WILL CONTINUE TO MONITOR.
--- NOTE | 2019-05-03 23:35 | NUR ---
PATIENT EYES CLOSED. RESPIRATIONS 18 & EVEN. HOB 30 DEGREE FOR COMFORT. URINAL & CALL LIGHT WITHIN REACH. ALARM ON. WILL CONTINUE TO MONITOR.
--- NOTE | 2019-05-04 02:08 | NUR ---
I have reviewed this patient and I concur with the Shift Assessment completed by the Licensed Practical Nurse today this shift.
--- NOTE | 2019-05-04 08:55 | NUR ---
PT AM MEDS ADMINISTERD. PT CURRENTLY PARTICIPATING IN THERAPY. PT DENIES NEEDS. WCTM.
[2019-05-04 08:57] VITALS: BP 116/78
--- NOTE | 2019-05-04 19:30 | NUR ---
PT ALERT AND ORIENTED. HOB ELEVATED. WEARING O2 AT 2 L VIA NASAL CANNULA. ASSISTED TO BATHROOM. DENIES PAIN OR DISCOMFORT. HAS CALL LIGHT AND URINALS AT BEDSIDE. DENIES FURTHER NEEDS AT THIS TIME. CPOC.
[2019-05-04 20:00] VITALS: BP 134/79
--- NOTE | 2019-05-05 03:28 | NUR ---
I have reviewed this patient and I concur with the Shift Assessment completed by the Licensed Practical Nurse today this shift.
--- NOTE | 2019-05-05 08:32 | NUR ---
PT AM MEDS ADMINISTERED. PT ASSISTED TO BR. PT HAD MEDIUM LOOSE BM. PT BED LINENS CHANGED D/T SPILLED URINAL. PT BACK IN BED RESTING AND DENIES FURTHER NEEDS. WCTM.
[2019-05-05 09:14] VITALS: BP 124/71
--- NOTE | 2019-05-05 19:13 | NUR ---
PT SITTING UP IN WHEELCHAIR. ASSISTED TO AND FROM BATHROOM. DENIES FURTHER NEEDS OR PAIN AT THIS TIME. CL IN REACH. WCTM
[2019-05-05 20:43] VITALS: BP 133/60
--- NOTE | 2019-05-05 23:34 | NUR ---
PT LYING IN BED. CL IN REACH. DENIES NEEDS OR PAIN AT THIS TIME. BED IN LOW SIDE RAILS X2. O2 ON 2L. RESP EVEN AND UNLABORED. A/O X4. EMPTIED 300CC OUT OF URINAL. LUNGS DIMINISHED. BOWEL ACTIVE X4. WCTM
--- NOTE | 2019-05-06 03:44 | NUR ---
I have reviewed this patient and I concur with the Shift Assessment completed by the Licensed Practical Nurse today this shift.
--- NOTE | 2019-05-06 05:28 | NUR ---
PT LYING IN BED. CL IN REACH. DENIES NEEDS AT THIS TIME. RESP EVEN AND UNLABORED. WCTM
--- NOTE | 2019-05-06 07:31 | NUR ---
RESTING WO DISTRESS. RESP EVEN AND UNLABORED. CL IN REACH.
[2019-05-06 08:00] VITALS: BP 126/72
--- NOTE | 2019-05-06 09:47 | RHP ---
PATIENT: ANGEL RAI MEDICAL RECORD: [id number] ACCOUNT: [id number] LOCATION:[facility] : [birth year] ADMISSION DATE: 04/25/19 REHABILITATION HISTORY AND PHYSICAL EXAMINATION POST ADMISSION PHYSICIAN EXAMINATION ADMITTING DIAGNOSES: Muscular wasting and disuse atrophy. HISTORY OF PRESENT ILLNESS: The patient is an 78-year-old gentleman who presents back to the rehab after being transferred back upstairs secondary to an ileus. The patient had a colonoscopy and decompression done there and is actually doing better at this time. He had been having some complaints of constipation, abdominal discomfort, and nausea. His initial labs revealed a low potassium and abdominal distention with hypoactive bowel sounds. CT of the abdomen was consistent with an ileus in the transverse and descending colon. He had been admitted to the hospital with an ileus and general surgery followup. He had an NG tube placed for decompression and has had this removed. His diet is slowly progressing. He started passing some flatus and having bowel movements on 04/24/2019. He has got a past medical history of CHF, diastolic dysfunction, hyperlipidemia, obstructive sleep apnea, prostate cancer, arthritis, chronic back pain. The patient is currently being monitored closely for any signs of a repeat ileus. He has had a recent NG tube. He has got IV Reglan, q.6 hours IV Protonix. Monitoring his lab values closely via electrolyte protocol. He has required this during his stay. He is on some supplemental O2. He has had dyspnea on exertion, debility, deconditioning, weakness, impaired mobility. He is a fall risk and self-care deficits. These are all barriers to his discharge at this time. He is currently mod assist to total assist for activities of daily living at this time. He is also having problems with his mobility. He and his family would like for him to return home with his 2 grandsons at his prior level of functioning or better if possible. COMORBIDITIES: Include ileus, CDT positive, hypokalemia, hypomagnesemia, normocytic anemia, atrial fib, decubitus ulcer, gastroesophageal reflux disease, diabetes, impaired mobility, oxygen dependence. He has had deconditioning, gait disturbance, impaired mobility. PAST MEDICAL HISTORY: Significant for hyperlipidemia, obstructive sleep apnea, atrial fib, allergies, hypertension, sleep apnea, prostate cancer. He has had gastritis, arthritis, chronic back pain, diabetes, pressure ulcer, and skin rash. PAST SURGICAL HISTORY: Includes gallbladder surgery, tonsillectomy and adenoidectomy, left ORIF of his elbow, a knee scope and a partial knee on the right. ALLERGIES: DUCK EGGS. CURRENT MEDICATIONS: Include potassium 10 mEq daily. He is on Lipitor 40 mg daily, allopurinol 300 mg daily. He is on metformin 850 in the morning and 500 at night, furosemide 40 mg b.i.d., Protonix 40 mg daily. He is on an electrolyte protocol at this time. He is on vancomycin orally 250 q.i.d. for CDT, nystatin powder as needed. He is on Calmoseptine p.r.n., Cardizem 60 mg t.i.d., and lorazepam 0.5 mg b.i.d. p.r.n. HABITS: No alcohol or tobacco use. HISTORY AND PHYSICAL [id number] ANGEL RAI FAMILY HISTORY: Noncontributory. SOCIAL HISTORY: The patient hopes to get back home and get back to his prior level of functioning. REVIEW OF SYSTEMS: GENERAL: Does complain of weakness and fatigue. HEENT: Denies cold, cough, or congestion. CARDIOVASCULAR: He denies any chest pain. PHYSICAL EXAMINATION: VITAL SIGNS: Stable, afebrile. GENERAL: A morbidly obese gentleman in no acute distress, alert upon exam. HEENT: Normocephalic and atraumatic. Mucosa moist. NECK: Supple. No lymphadenopathy. LUNGS: Clear in upper yates. HEART: Regular rate and rhythm. ABDOMEN: Soft, appropriately tender. He does have bowel sounds at this time. EXTREMITIES: No clubbing, cyanosis or edema. NEUROLOGIC: He does have noted proximal muscle weakness. LABORATORY DATA: His white count is 5.8, H&H of 10 and 31, and platelet count is noted to be 191. His sodium is 140, potassium 3.3, BUN and creatinine of 12 and 0.9 and blood sugar is noted to be 104. ASSESSMENT: This is an 78-year-old gentleman admitted to the rehab with a working diagnosis of debility. The patient has potential to make improvement. We instituted the following multidisciplinary therapies including but not limited to physical, occupational, respiratory, speech, nutritional services, prosthetics and orthotics. Given his complex medical condition and risk for more complications, rehabilitation services cannot be provided at a low level of care such as skilled nurse facility. PLAN: 1. Admit to [facility] rehab for an intensive therapy to include: A. Physical therapy to improve gait, all transfer skills and bed mobility to a modified independent level. B. Occupational therapy to improve activities of daily living to a modified independent level. C. Case management to assist with discharge planning and placement options. D. Nutrition to assist with nutritional needs. E. Rehabilitation nursing to assist in monitoring the patient's underlying medical conditions and to assist with any type of bowel and bladder management. 2. The patient's current medication and medical care will be continued. 3. The patient will be placed on standard fall precautions. 4. The patient's estimated length of stay is approximately 7-10 days. 5. We will monitor his electrolytes closely and keep him on a protocol. TRANSINT:[id number] Voice Confirmation ID: [id number] DOCUMENT ID: [id number] MEGAN notes whether there has been none or any medical/functional change since admission: - No change since prescreen. HISTORY AND PHYSICAL [id number] ANGEL RAI attests patient continues to be appropriate for IRF: - Continues to be appropriate. MARKEL NO MD at 0947 CC: [id number] DICTATION DATE: 05/02/19903 MUTUEL CASHIER: 05/02/19922 ADM IN [facility] [address] [id number]
--- NOTE | 2019-05-06 09:47 | RHP ---
PATIENT: ANGEL RAI MEDICAL RECORD: [id number] ACCOUNT: [id number] LOCATION:[facility] : [birth year] ADMISSION DATE: 04/25/19 REHABILITATION HISTORY AND PHYSICAL EXAMINATION POST ADMISSION PHYSICIAN EXAMINATION ADMITTING DIAGNOSES: Debility with muscular wasting and disuse atrophy HISTORY OF PRESENT ILLNESS: The patient is an 78-year-old gentleman who presented to ED on 04/17/2019 with constipation and abdominal discomfort and nausea: Lab work showed he had hypokalemia. His bowel sounds were hypoactive. CT of his abdomen revealed an ileus of the transverse and descending colon. He was admitted to the hospital with an ileus and had a general surgery consult. He had an NG tube placed for decompression and had it removed. His diet has been advanced slowly. He has had a bowel movement. Past medical history is significant for CHF with diastolic dysfunction, hyperlipidemia, obstructive sleep apnea, atrial fib/flutter, allergies, prostate cancer, chronic back pain, C. diff. The patient is currently on supplemental oxygen. Monitored closely for I's and O's with ileus and recent NG tube. He is getting IV Reglan and IV Protonix. Have him to monitor his lab values closely with electrolyte protocol and he has required this. He is short of breath with supplemental O2, dyspnea on exertion, debility, weakness, and impaired mobility. He is a fall risk and has self-care deficit. These are all barriers to his discharge home. Lives at home with his grandson and was moderately independent with rolling walker and was independent with ADLs. He is currently mod assist to total assist with mobility and set up for mod assist for his ADLs. He and his family would like him to return home. He has 2 grandsons that help with this. He would like to get him home at his prior level of functioning or better after his stay here in the rehabilitation. PAST MEDICAL HISTORY: Significant for hyperlipidemia, obstructive sleep apnea, atrial fib/flutter, allergies, He has got a history of CHF, hypertension, gastritis, arthritis, and chronic back pain. COMORBIDITIES: Include ileus. He was CDT positive, hypokalemia, hypomagnesemia, small-bowel obstruction, CHF, normocytic anemia, atrial fib, decubitus ulcer, gastroesophageal reflux disease, diabetes, impaired mobility, oxygen dependence, deconditioning, gait disturbance, and impaired mobility. PAST SURGICAL HISTORY: Includes gallbladder surgery, tonsillectomy, and adenoidectomy. He has had a left elbow ORIF times 6. He has had a keen scoped in a right partial knee. ALLERGIES: DUCK EGGS OR ANYTHING EGG DERIVED. CURRENT MEDICATIONS: Include potassium 20 mEq daily; Lipitor 40 mg daily; allopurinol 300 mg daily; metformin 500 mg daily in the a.m., he takes 850 in the p.m.; he is on Protonix 40 mg daily; he is on Calmoseptine as needed; vancomycin orally 250 q.i.d.; Nystatin powder topically as needed; furosemide 40 mg b.i.d.; diltiazem 60 mg t.i.d.; and lorazepam 0.5 mg b.i.d. p.r.n. HABITS: No alcohol or tobacco use. FAMILY HISTORY: Noncontributory. HISTORY AND PHYSICAL [id number] ANGEL RAI SOCIAL HISTORY: The patient once again hopes to return home and get back to his prior level of functioning. REVIEW OF SYSTEMS: GENERAL: He does complain of some weakness and fatigue. HEENT: Denies cold, cough, or congestion. CARDIOVASCULAR: Denies any chest pain. PHYSICAL EXAMINATION: VITAL SIGNS: Stable. His temperature is 97.9, pulse 97, respirations 20, blood pressure is 133/71, and his pulse ox at this time is 96%. GENERAL: A morbidly obese gentleman, in no acute distress, alert upon exam. HEENT: Normocephalic and atraumatic. Mucosa moist. NECK: Supple. No lymphadenopathy. LUNGS: Clear in upper yates. HEART: Irregular rate and rhythm. ABDOMEN: Benign. EXTREMITIES: No clubbing, cyanosis, or edema. NEUROLOGIC: He does have noted proximal muscle weakness. LABORATORY DATA: Pending at this time. ASSESSMENT: This is an 78-year-old gentleman admitted to the rehab with a working diagnosis of debility with muscular wasting and weakness. The patient has potential to make improvement. We instituted the following multidisciplinary therapies including, but not limited to physical, occupational, respiratory, speech, nutritional services, prosthetics and orthotics. Given his complex medical condition, risk of further medical complications, rehabilitative services cannot be provided at a low level of care such a skilled nurse facility. PLAN: [facility]: A. Physical therapy to improve gait, all transfer skills and bed mobility to a modified independent level. B. Occupational therapy to improve activities of daily living. C. Case management to assist with placement of this patient and followup. D. Nutrition to assist with nutritional needs. E. Rehabilitation nursing to assist in monitoring the patient's underling medical conditions and to assist with any type of bowel or bladder management. 2. The patient's current medication and medical care will be continued. 3. I am going to see him again in the a.m. 4. We will follow closely. TRANSINT:[id number] Voice Confirmation ID: [id number] DOCUMENT ID: [id number] MEGAN notes whether there has been none or any medical/functional change since admission: - No chance since preadmission screen. MEGAN attests patient continues to be appropriate for IRF: - Continues to be appropriate. HISTORY AND PHYSICAL [id number] ANGEL RAI,MARKEL DOMÍNGUEZ MD at 0947 CC: [id number] DICTATION DATE: 04/26/19813 TUBE SKIVER: 04/26/19 [address] [facility] [address] [id number]
--- NOTE | 2019-05-06 13:53 | NUR ---
PARTICIPATED IN THERAPY. NO C/O PAIN.
[2019-05-06 14:24] LABS: ANION GAP 11.5 mmol/L (8-16); CALCIUM 10.2 mg/dL (8.5-10.1); CARBON DIOXIDE 34.1 mmol/L (21.0-32.0); CREATININE - SERUM 1.1 mg/dL (0.6-1.3); MAGNESIUM - SERUM 1.6 mg/dL (1.8-2.4); PHOSPHOROUS 3.4 mg/dL (2.5-4.9); POTASSIUM - SERUM 3.6 mmol/L (3.5-5.1)
--- NOTE | 2019-05-06 18:00 | NUR ---
NO CHANGE IN ASSESSMENT. CL IN REACH. NO C/O PAIN.
[2019-05-06 19:09] LABS: APPEARANCE CLEAR (CLEAR); BILIRUBIN NEGATIVE (NEGATIVE); COLOR YELLOW (YELLOW); GLUCOSE NEGATIVE (NEGATIVE); KETONE NEGATIVE (NEGATIVE); NITRITE NEGATIVE (NEGATIVE); PROTEIN NEGATIVE (NEGATIVE); UROBILINOGEN NORMAL (NORMAL)
[2019-05-06 19:10] LABS: BACTERIA FEW /hpf (NONE SEEN); RED CELLS - URINE 0-5 /hpf (0-5); WHITE CELLS - URINE 0-5 /hpf (0-5)
--- NOTE | 2019-05-06 19:50 | NUR ---
PT LYING IN BED RESTING QUIETLY. CL IN REACH. NO DISTRESS NOTED. RESP EVEN AND UNLABORED. WCTM
[2019-05-06 20:42] VITALS: BP 130/75
--- NOTE | 2019-05-06 22:10 | NUR ---
PT RECIEVED NIGHT MEDS. CL IN REACH. ORDERS FOR WARM WATER ENEMA FOR TONIGHT. ENEMA GIVEN WHILE STANDING IN BATHROOM PER REQUEST OF PATIENT. PT ABLE TO STAND FOR PERIODS AT A TIME. TOLERATED WELL. PT REQUESTED TO SIT IN BATHROOM FOR A LITTLE WHILE TO RELAX AND TRY AND GET MUCH OUT HE CAN. VERY FEW SMALL SEMI FORMED BM WAS NOTED. MOSTLY LIQUID. PT AFTER FINISHING DID STATE HIS ABDOMEN FELT LESS TIGHT AND HE FELT A LITTLE BIT BETTER. ASSISTED PT BACK TO BED. WCTM. LUNGS DIMINISHED. A/O X4. RESP EVEN AND UNLABORED. PT ON 2L OF O2.
--- NOTE | 2019-05-07 03:39 | NUR ---
PT RESTING QUIETLY. CL IN REACH. NO DISTRESS NOTED. WCTM
--- NOTE | 2019-05-07 04:43 | NUR ---
PT IN BED LOWEST POSITION, EYES CLOSED AROUSES EASILY TO VOICE, RESPIRATIONS EVEN AND UNLABORED, NO NEEDS NOTED, FLUIDS AND CALL LIGHT WITHIN REACH I have reviewed this patient and I concur with the Shift Assessment completed by the Licensed Practical Nurse today this shift.
--- NOTE | 2019-05-07 06:22 | NUR ---
FSBS 97
--- NOTE | 2019-05-07 07:26 | NUR ---
RESTING WO DISTRESS. RESP EVEN AND UNLABORED. CL IN REACH.
[2019-05-07 08:00] VITALS: BP 124/68
--- NOTE | 2019-05-07 11:29 | NUR ---
SITTINIG UP IN CHAIR IN ROOM. NO C/O PAIN.
--- NOTE | 2019-05-07 12:19 | NUR ---
NUTRITION F/U CHART REVIEWED, PT NOW ON CLEAR LIQUID DIET PER GI. WILL MONITOR DIET ADVANCEMENT, PT PROGRESS. RD FOLLOWING
--- NOTE | 2019-05-07 13:46 | NUR ---
PATIENT HAD DULCOLAX SUPPORITIRY THIS AM AND ENEMA THIS AFTERNOON BY NURSE. FIM SCORE BOWEL IS A 1.
--- NOTE | 2019-05-07 16:41 | NUR ---
ENEMA TODAY WITH BROWN LIQUID RESULTS. ABD XRAY DONE TODAY.
--- NOTE | 2019-05-07 19:22 | NUR ---
PT LYING IN BED. CL IN REACH. DENIES NEEDS AT THIS TIME. BED IN LOW SIDE RAILS X2. A/O X4. RESP EVEN AND UNLABORED. WCTM
[2019-05-07 20:28] VITALS: BP 128/62
--- NOTE | 2019-05-07 22:45 | NUR ---
ADMINISTERED SUPPOSITORY WHILE PT WAS IN BATHROOM USING COMODE. ALSO GAVE SPONGE BATH WHILE SITTING ON TOILET. BM MAINLY LIQUID. APPLIED BEKAH TO BUTTOCKS. ASSISTED TO PREFORM ORAL HYGIENE. THEN ASSISTED BACK IN BED. CL IN REACH. DENIES FURTHER NEEDS. WCTM
--- NOTE | 2019-05-08 01:07 | NUR ---
PT IN BED LOWEST POSITION, EYES CLOSED AROUSES EASILY TO VOICE, RESPIRATIONS EVEN AND UNLABORED, NO NEEDS NOTED, FLUIDS AND CALL LIGHT WITHIN REACH
--- NOTE | 2019-05-08 02:51 | NUR ---
PT RESTING QUIETLY. CL IN REACH. NO DISTRESS NOTED. WCTM
[2019-05-08 06:35] LABS: BASOPHILS 0.2 % (0-2); EOSINOPHILS 2.5 % (0-7); HEMATOCRIT 30.6 % (42.0-54.0); HEMOGLOBIN 10.3 g/dL (13.5-17.5); IMMATURE GRANULOCYTES 0.2 % (0-5); LYMPHOCYTES 20.4 % (15-50); MCH 31.5 pg (26.0-34.0); MCHC 33.7 g/dL (31.0-37.0); MCV 93.6 fL (80.0-100.0); MEAN PLATELET VOLUME 9.8 fL (7.4-10.4); NEUTROPHILS 68.7 % (40-80); RBC 3.27 10x6/uL (4.20-6.10)
[2019-05-08 06:46] LABS: PLATELET COUNT 162 10x3/uL (130-400)
[2019-05-08 06:51] LABS: CALC OSMOLALITY 278 mosm/kg (275-300); CALCIUM 9.3 mg/dL (8.5-10.1); CARBON DIOXIDE 33.1 mmol/L (21.0-32.0); CHLORIDE - SERUM 100 mmol/L (98-107); CREATININE - SERUM 0.9 mg/dL (0.6-1.3); GLUCOSE 97 mg/dL (74-106); SODIUM 140 mmol/L (136-145); UREA NITROGEN 12 mg/dL (7-18); eGFR NON AFRICAN AMERICAN 86 mL/min (90-120)
[2019-05-08 07:47] VITALS: BP 137/83
--- NOTE | 2019-05-08 10:30 | NUR ---
PT AM MEDS ADMINSITERED. PT IN THERAPY AT THIS TIME. SUPPOSITORY TO BE GIVEN WHEN PT IS BACK IN ROOM. WCTM.
--- NOTE | 2019-05-08 15:10 | NUR ---
CARE TEAM MEETING: TENATIVE DISCHARGE DATE IS 05/10/19.DISCHARGE PLANS , PATIENT STATES HE WILL DISCHARGE HOME WITH HOME HEALTH. WILL CONTINUE TO FOLLOW WITH PATIENT AND WILL ASSIST WITH DISCHARGE NEEDS.
--- NOTE | 2019-05-08 18:09 | NUR ---
PT RESTING, EYES CLOSED. RR ARE EVEN AND UNLABORED. WCTM.
--- NOTE | 2019-05-08 19:45 | NUR ---
ASSISTED PT TO BATHROOM. PT HAS WATERLY BM. CALMOSEPTINE APPLIED TO COCCYX. NYSTATINE APPLIED TO GROIN AND ABD AREA.
[2019-05-08 20:27] VITALS: BP 129/56
[2019-05-08 20:40] VITALS: BP 124/72
--- NOTE | 2019-05-09 02:12 | NUR ---
REST QUIETLY IN BED, RESP EVEN, NO S/S OF DISTRESS. CALL LIGHT IN REACH.
--- NOTE | 2019-05-09 05:06 | NUR ---
REST IN BED. CALL LIGHT IN REACH.
--- NOTE | 2019-05-09 08:09 | NUR ---
PT AM MEDS ADMINISTERED. PT IN THERAPY ROOM EATING BREAKFAST, DENIES NEEDS. WCTM.
--- NOTE | 2019-05-09 17:15 | NUR ---
PT EATING DINNER, DENIES NEEDS. WCTM.
[2019-05-09 19:00] VITALS: BP 111/65
--- NOTE | 2019-05-09 19:23 | NUR ---
RESTING IN BED WITH RESPIRATIONS UNLABORED. O2/3L ON PER NASAL CANNULA. REMAINS IN ENTERIC ISOLATION. NO ACUTE DISTRESS NOTED. CALL LIGHT IN REACH.
--- NOTE | 2019-05-10 00:40 | NUR ---
RESTING IN BED WITH NO DISTRESS NOTED. CALL LIGHT IN REACH. WAS ASSISTED TO BATHROOM EARLIER AND HAD LARGE LOOSE BM.
[2019-05-10 07:17] LABS: CALC OSMOLALITY 277 mosm/kg (275-300); CALCIUM 9.4 mg/dL (8.5-10.1); CARBON DIOXIDE 31.3 mmol/L (21.0-32.0); CHLORIDE - SERUM 99 mmol/L (98-107); GLUCOSE 96 mg/dL (74-106); SODIUM 139 mmol/L (136-145); UREA NITROGEN 13 mg/dL (7-18); eGFR NON AFRICAN AMERICAN 76 mL/min (90-120)
--- NOTE | 2019-05-10 07:20 | NUR ---
RECEIVED REPORT. ALERT AND ORIENTED X3. ASSISTED TO RESTROOM WITH MIN ASSIST. INSTRUCTED PT TO PULL CALL CORD WHEN FINISHED. VERBALIZED UNDERSTANDING.
[2019-05-10 07:22] LABS: POTASSIUM - SERUM 2.9 mmol/L (3.5-5.1)
[2019-05-10 07:29] LABS: BASOPHILS 0.3 % (0-2); EOSINOPHILS 2.6 % (0-7); HEMATOCRIT 30.4 % (42.0-54.0); HEMOGLOBIN 10.1 g/dL (13.5-17.5); IMMATURE GRANULOCYTES 0.2 % (0-5); LYMPHOCYTES 23.9 % (15-50); MCH 30.9 pg (26.0-34.0); MCHC 33.2 g/dL (31.0-37.0); MEAN PLATELET VOLUME 9.9 fL (7.4-10.4); MONOCYTES 8.2 % (2-11); NEUTROPHILS 64.8 % (40-80); PLATELET COUNT 160 10x3/uL (130-400); RBC 3.27 10x6/uL (4.20-6.10); RDW 14.2 % (11.5-14.5); WBC 5.9 10x3/uL (4.8-10.8)
[2019-05-10 09:00] VITALS: BP 104/74
--- NOTE | 2019-05-10 12:33 | NUR ---
SITTING UP IN W/C EATING LUNCH. DENIES ANY NEEDS OR PAIN.
--- NOTE | 2019-05-10 14:05 | NUR ---
REFERRAL HAS BEEN FAXED TO [facility] FOR POSSIBLE ADMISSION ON 05/13/19. WILL CONTINUE TO FOLLOW WITH PATIENT.
--- NOTE | 2019-05-10 15:13 | NUR ---
IN THERAPY GYM PARTICIPATING IN PHYSICAL THERAPY WITH
[2019-05-10 19:35] VITALS: BP 130/67
--- NOTE | 2019-05-10 19:35 | NUR ---
AWAKE AND ALERT RESTING IN BED WITH RESPIRATIONS UNLABORED. O2/3L ON PER NASAL CANNULA. REMAINS IN ENTERIC ISOLATION. NO ACUTE DISTRESS NOTED. CALL LIGHTIN REACH.
--- NOTE | 2019-05-11 02:32 | NUR ---
RESTING IN BED WITH RESPIRATIONS UNLABORED. NO DISTRESS NOTED. CALL LIGHT IN REACH.
--- NOTE | 2019-05-11 05:40 | NUR ---
RESTING IN BED WITH RESPIRATIONS UNLABORED. QUIET HOURS. NO ACUTE CHANGES IN CONDITION THIS SHIFT. REMAINS IN ENTERIC PRECAUTIONS. CALL LIGHT IN REACH.
--- NOTE | 2019-05-11 07:24 | NUR ---
ALERT AND ORIENTED. RESP EVEN AND UNLABORED. O2 ON AT 3L NC. CL IN REACH.
[2019-05-11 07:55] VITALS: BP 132/81
--- NOTE | 2019-05-11 13:16 | NUR ---
NO CHANGE IN ASSESSMENT. RESTING WO DISTRESS. CL IN REACH.
--- NOTE | 2019-05-11 14:50 | NUR ---
NURSE INSERTS DULCOLAX SUPP BID.
--- NOTE | 2019-05-11 16:34 | NUR ---
NO CHANGE IN ASSESSMENT. DAUGHTER AT BS. RESTING QUIETLY WITH EYES CLOSED. CL IN REACH.
--- NOTE | 2019-05-11 19:37 | NUR ---
AWAKE AND ALERT. RESTING IN BED. RESPIRATIONS UNLABORED. O2/3L ON PER NASAL CANNULA. REMAINS IN ENTERIC PRECAUTIONS ISOLATION. NO ACUTE DISTRESS NOTED. CALL LIGHT IN REACH.
[2019-05-11 19:40] VITALS: BP 139/75
--- NOTE | 2019-05-12 01:23 | NUR ---
RESTING IN BED AWAKE. STATES "IM FINE". RESPIRATIONS UNLABORED. NO DISTRESS NOTED. CALL LIGHTIN REACH.
--- NOTE | 2019-05-12 05:39 | NUR ---
QUIET HOURS. UP TO BATHROOM AND HAD 3 SAMLL LOOSE STOOLS THIS SHIFT. RESTING IN BED WITH NO ACUTE DISTRESS NOTED. AM LAB DRAWN. NO ACUTE CHANGES IN CONDITION THIS SHIFT.
[2019-05-12 05:40] LABS: CALC OSMOLALITY 274 mosm/kg (275-300); CALCIUM 9.3 mg/dL (8.5-10.1); CARBON DIOXIDE 29.6 mmol/L (21.0-32.0); CHLORIDE - SERUM 100 mmol/L (98-107); GLUCOSE 104 mg/dL (74-106); POTASSIUM - SERUM 3.1 mmol/L (3.5-5.1); SODIUM 138 mmol/L (136-145); UREA NITROGEN 11 mg/dL (7-18); eGFR NON AFRICAN AMERICAN 76 mL/min (90-120)
[2019-05-12 08:28] VITALS: BP 128/62
--- NOTE | 2019-05-12 08:32 | NUR ---
ALERT AND ORIENTED. NO C/O PAIN. EATING BREAKFAST. CL IN REACH.
[2019-05-12 10:55] LABS: CALC OSMOLALITY 275 mosm/kg (275-300); CALCIUM 9.3 mg/dL (8.5-10.1); CARBON DIOXIDE 29.3 mmol/L (21.0-32.0); CHLORIDE - SERUM 100 mmol/L (98-107); GLUCOSE 125 mg/dL (74-106); POTASSIUM - SERUM 3.3 mmol/L (3.5-5.1); SODIUM 138 mmol/L (136-145); UREA NITROGEN 10 mg/dL (7-18); eGFR NON AFRICAN AMERICAN 76 mL/min (90-120)
--- NOTE | 2019-05-12 12:55 | NUR ---
SITTING UP IN CHAIR. NO CHANGE IN ASSESSMENT. CL INREACH.
--- NOTE | 2019-05-12 15:57 | NUR ---
RESTING WITH EYES CLOSED. NO CHANGE IN ASSESSMENT. CL IN REACH.
--- NOTE | 2019-05-12 19:25 | NUR ---
PT RESTING QUIETLY. SITTING UP IN BED EYES CLOSED. BED IN LOW SIDE RAILS X2. NO DISTRESS NOTED. CL IN REACH. RESP EVEN AND UNLABORED. WCTM
--- NOTE | 2019-05-12 23:12 | NUR ---
ASSISTED TO AND FROM BATHROOM. BM WAS LOOSE. CL IN REACH. DENIES FURTHER NEEDS AT THIS TIME. WCTM
--- NOTE | 2019-05-13 00:55 | NUR ---
PT POTASSIUM WAS DRAWN AT 0035 AND LAB WAS 3.6 NO COVERAGE WAS NEEDED DUE TO ELECTROLYTE PROTOCOL. WCTM NEXT LAB DUE TO BE DRAWN AT 0400.
--- NOTE | 2019-05-13 01:17 | NUR ---
I have reviewed this patient and I concur with the Shift Assessment completed by the Licensed Practical Nurse today this shift.
--- NOTE | 2019-05-13 03:30 | NUR ---
ASSISTED TO AND FROM BATHROOM. CL IN REACH. LYING IN BED. DENIES FURTHER NEEDS. WCTM
--- NOTE | 2019-05-13 06:20 | NUR ---
PT RESTING QUIETLY. CL IN REACH. NO DISTRESS NOTED. WCTM
[2019-05-13 06:30] LABS: BASOPHILS 0.2 % (0-2); EOSINOPHILS 2.5 % (0-7); HEMATOCRIT 31.5 % (42.0-54.0); HEMOGLOBIN 10.4 g/dL (13.5-17.5); IMMATURE GRANULOCYTES 0.3 % (0-5); MCV 93.8 fL (80.0-100.0); MEAN PLATELET VOLUME 9.9 fL (7.4-10.4); MONOCYTES 8.3 % (2-11); NEUTROPHILS 67.7 % (40-80); PLATELET COUNT 154 10x3/uL (130-400); RBC 3.36 10x6/uL (4.20-6.10); RDW 13.9 % (11.5-14.5)
--- NOTE | 2019-05-13 06:39 | NUR ---
FSBS 99
[2019-05-13 06:45] LABS: CALC OSMOLALITY 277 mosm/kg (275-300); CALCIUM 9.2 mg/dL (8.5-10.1); CARBON DIOXIDE 29.5 mmol/L (21.0-32.0); CHLORIDE - SERUM 103 mmol/L (98-107); GLUCOSE 119 mg/dL (74-106); POTASSIUM - SERUM 3.1 mmol/L (3.5-5.1); SODIUM 139 mmol/L (136-145); UREA NITROGEN 11 mg/dL (7-18); eGFR NON AFRICAN AMERICAN 76 mL/min (90-120)
[2019-05-13 08:00] VITALS: BP 121/74
--- NOTE | 2019-05-13 08:00 | NUR ---
PATIENT IS ALERT/ORIENT. REMAINS IN CONTACT ISOLATION. CALL LIGHT WITHIN REACH. VOICES NO NEEDS. WILL CONTINUE WITH PLAN OF CARE
--- NOTE | 2019-05-13 09:08 | NUR ---
PATIENT HAS NO DECUBITIS. NO OPEN AREAS. BOTTOM IS RED. BEKAH CREAM APPLIED. LOWER BILATERAL LEGS DRY/SCALY WITH REDNESS.
--- NOTE | 2019-05-13 10:05 | NUR ---
PATIENT IN REHAB ROOM. WORKING WITH PHYSICAL THERAPIST. DENIES ANY PAIN/DISC AT THIS TIME.
--- NOTE | 2019-05-13 11:10 | NUR ---
PATIENT DISCHARGING TO [facility] TODAY VIA FACILITY [facility]. DAUGHTER MARIANA HAS BEEN NOTIFIED. AN APPOINTMENT WITH DR. MCCAULEY WILL BE MADE AT TIME OF DISCHARGE FROM FACILITY AND DR. HERNÁNDEZ OFFICE WILL CALL PATIENT WITH AN APPOINTMENT. PATIENT CHOICE FORMS AND IMFM FORMS SIGNED, COPY GIVEN TO PATIENT AND FILED IN CHART. DISCHARGE INSTRUCTIONS WITH [facility]IM DATA FAXED TO PCP, SNF AND REVIEWED WITH PATIENT.
--- NOTE | 2019-05-13 13:16 | NUR ---
PATIENT DISCHARGED TO [facility] REHAB SKILLED NURSING. FACILITY [facility] TRANSPORTED PATIENT. REPORT CALLED TO HILDA AMBRIZ AT [facility]
== END 2019-05-13 13:19 | DRG 558 ==
LOC: D.REHAB 17:25
PROVIDERS: Surgery; ADMIT Emergency Medicine; ATTEND Emergency Medicine
PROC: 0DJD8ZZ Inspection of Lower Intestinal Tract, Via Natural or Artificial Opening Endoscopic (ICD-10-PCS; principal; 2019-04-30)
DX: M62.50 Muscle wasting and atrophy, not elsewhere classified, unspecified site (principal); K56.7 Ileus, unspecified; K56.609 Unspecified intestinal obstruction, unspecified as to partial versus complete obstruction; E87.6 Hypokalemia; E83.42 Hypomagnesemia; I48.91 Unspecified atrial fibrillation; K21.9 Gastro-esophageal reflux disease without esophagitis; E11.9 Type 2 diabetes mellitus without complications; L89.90 Pressure ulcer of unspecified site, unspecified stage; Z99.81 Dependence on supplemental oxygen; R26.9 Unspecified abnormalities of gait and mobility; E78.5 Hyperlipidemia, unspecified; G47.33 Obstructive sleep apnea (adult) (pediatric); R53.81 Other malaise; I50.9 Heart failure, unspecified; D64.9 Anemia, unspecified

== ENCOUNTER 2019-04-29 16:29 | Inpatient (IN) | payer MEDICARE, OTHER ==
[~2019-04-29] VITALS: Ht 180.3 cm; Wt 127.3 kg
[2019-04-29 23:26] VITALS: BP 125/72; Ht 180.3 cm; Wt 127.3 kg
[2019-04-30 04:00] VITALS: BP 153/78
--- NOTE | 2019-04-30 08:21 | NUR ---
PT ALERT X 4. BREATH SOUNDS CLEAR [id number] O2 PER NC. BOWEL SOUNDS HYPOACTIVE TO ALL BRONSON. IV TO RIGHT HAND, PATENT, DRESSING CDI. +2 EDEMA TO BLE, SKIN TO LOWER LEGS REDDENED. BED LOW, CALL LIGHT IN REACH. NO OTHER NEEDS AT THIS TIME.
[2019-04-30 08:52] LABS: ANION GAP 5.6 mmol/L (8-16); CARBON DIOXIDE 35.1 mmol/L (21.0-32.0)
[2019-04-30 08:54] LABS: POTASSIUM - SERUM 2.7 mmol/L (3.5-5.1)
[2019-04-30 09:25] VITALS: BP 119/73
--- NOTE | 2019-04-30 14:20 | OP ---
PATIENT NAME: ANGEL RAI MEDICAL RECORD: [id number] :[birth year] LOCATION:D.[facility] [id number] ADMISSION DATE:04/29/19 SURGEON: CELESTE BETANCOURT MD DATE OF OPERATION: 04/30/2019 PREOPERATIVE DIAGNOSES: 1. Ileus versus large bowel obstruction. 2. Clostridium difficile colitis. 3. Deconditioning. POSTOPERATIVE DIAGNOSES: 1. Ileus versus large bowel obstruction. 2. Clostridium difficile colitis. 3. Deconditioning. PROCEDURE: Colonoscopy. SURGEON: Celeste Betancourt MD REPORT OF PROCEDURE: An Olympus endoscope was advanced through the patient's anus and rectum. We were able to come around the patient's colon. I was not able to get completely in to the cecum due to the fact that I just ran out of tube. During our insertion of the scope, we looked for any masses or lesions. I did not see any evidence of this, but there was some stool present in the colon along with a large amount of air. We did not see any evidence of any diverticula. There was no sign of any inflammation or masses present. There was no sign of any volvulus. As we pulled the scope back, we made sure to remove the air from the colon and try to remove as much of the stool content as possible. At the conclusion of the case, we did decompress the colon and the abdomen was soft. COMPLICATIONS: None. CONDITION: Stable. ANESTHESIA: TIVA. BLOOD LOSS: Minimal. REPEAT COLONOSCOPY IN 3-5 YRS TRANSINT:[id number] Voice Confirmation ID: [id number] DOCUMENT ID: [id number] CELESTE BETANCOURT MD at 1420 CC: [id number] DICTATION DATE: 04/30/19 0747 RELAY ADJUSTER: 04/30/19 1005 ADM IN [facility] [address] [place] [address]
--- NOTE | 2019-04-30 15:50 | NUR ---
NOTIFIED DR. BETANCOURT THAT PATIENT WILL NOT BE DISCHARGING TODAY. POSSIBLY TOMORROW.
[2019-04-30 20:00] VITALS: BP 125/76
--- NOTE | 2019-04-30 23:47 | NUR ---
2000)REC'D. IN BED EYES CLOSED RESP. DEEP AND EVEN.AROUSES TO VERBAL STIMULI. WILL CONTINUE TO MONITOR FOR ANY CHGES AND FOLLOW CURRENT PLAN OF CARE.
[2019-05-01] VITALS: BP 130/744
[2019-05-01 04:00] VITALS: BP 127/76
--- NOTE | 2019-05-01 04:26 | NUR ---
I have reviewed this patient and I concur with the Shift Assessment completed by the Licensed Practical Nurse today this shift.
--- NOTE | 2019-05-01 07:35 | NUR ---
PT RESTING IN BED, ALERT AND ORIENTED. CH[place]GA. ON ENTERIC PRECAUTIONS FOR CDIFF. YEAST TO GROIN. UP WITH WALKER. IV TO RIGHT HAND, SL. SITE PATENT WITHOUT REDNESS OR SWELLING. PT ACHS BID. NO C/O PAIN. NO S/S OF ACUTE DISTRESS NOTED. CALL LIGHT IN REACH. WILL CONTINUE TO MONITOR.
[2019-05-01 08:35] VITALS: BP 118/79
[2019-05-01 12:49] VITALS: BP 113/69
--- NOTE | 2019-05-01 12:51 | MORECARE ---
CASE MANAGEMENT DISCHARGE SUMMARY PATIENT: ANGEL RAI N UNIT: [id number] ADM DATE: 04/29/19 AGE: 78 : 38 SEX: M ROOM/BED: D.2233 AUTHOR: VANI ROJO PHYSICIAN: REFERRING PHYSICIAN: CELESTE BETANCOURT MD DATE OF SERVICE: 05/01/19 Discharge Plan Patient Name: ANGEL RAI Facility: [facility]:[place] : 1940 Planned Disposition: Inpatient Rehab Anticipated Discharge Date: 05/01/19 Discharge Date: Expected LOS: 2 Initial Reviewer: [email or web address] Initial Review Date: 05/01/2019 Generated: 05/01/19 1:50 pm Patient Name: ANGEL RAI Page 34071 at 1251 All edits/amendments must be made on the electronic document DICTATION DATE: 05/01/19 1250 FAILURE ANALYSIS ENGINEER: ADRIANA 05/01/19 1250 RPT#: [id number] DC DATE: STATUS: ADM IN [facility] [address] [place] [address] END OF REPORT
--- NOTE | 2019-05-01 13:00 | MORECARE ---
CASE MANAGEMENT DISCHARGE SUMMARY PATIENT: ANGEL RAI UNIT: [id number] ADM DATE: 04/29/19 AGE: 78 : 38 SEX: M ROOM/BED: D.2233 AUTHOR: VANI ROJO PHYSICIAN: REFERRING PHYSICIAN: CELESTE BETANCOURT MD DATE OF SERVICE: 05/01/19 Discharge Plan Patient Name: ANGEL RAI Facility: [facility]:[place] : 1940 Planned Disposition: Inpatient Rehab Anticipated Discharge Date: 05/01/19 Discharge Date: Expected LOS: 2 Initial Reviewer: [email or web address] Initial Review Date: 05/01/2019 Generated: 05/01/19 2:00 pm Comments DCP- Discharge Planning Updated by [email or web address]: Dayana Cantor on 05/01/19 11:[address] Patient Name: ANGEL RAI Admission Status: Elective Accout number: [id number] Admission Date: 04-29-2019 : 1940 Admission Diagnosis: Attending: CELESTE BETANCOURT Current LOS: 2 Anticipated DC Date: 05-01-2019 Planned Disposition: Inpatient Rehab Primary Insurance: MEDICARE A & B Discharge Planning Comments: Inpatient rehab at [facility] will accept back today, patient is in agreement to discharge to inpatient rehab. Cost Manager: Dayana Qiu DP export: 05/01/19 11:51 a Patient Name: ANGEL RAI Page [phone] at 1300 All edits/amendments must be made on the electronic document DICTATION DATE: 05/01/19 1259 KEY ACCOUNT COORDINATOR: ADRIANA 05/01/19 1259 RPT#: [id number] DC DATE: STATUS: ADM IN [facility] [address] [place] [address] END OF REPORT
[2019-05-01 14:11] LABS: CALC OSMOLALITY 279 mosm/kg (275-300); CALCIUM 9.3 mg/dL (8.5-10.1); CARBON DIOXIDE 34.1 mmol/L (21.0-32.0); CHLORIDE - SERUM 101 mmol/L (98-107); CREATININE - SERUM 0.8 mg/dL (0.6-1.3); GLUCOSE 132 mg/dL (74-106); MAGNESIUM - SERUM 1.7 mg/dL (1.8-2.4); PHOSPHOROUS 2.6 mg/dL (2.5-4.9); SODIUM 140 mmol/L (136-145); UREA NITROGEN 10 mg/dL (7-18); eGFR NON AFRICAN AMERICAN > 90 mL/min (90-120)
[2019-05-01 14:13] LABS: POTASSIUM - SERUM 2.6 mmol/L (3.5-5.1)
[2019-05-01 16:07] VITALS: BP 116/71
--- NOTE | 2019-05-01 16:50 | NUR ---
PT DISCHARGED TO INPATIENT REHAB VIA BED ACCOMPANIED BY HOSPITAL STAFF. DISCONTINUED IV, CATHETER TIP INTACT. WENT OVER DISCHARGE INSTRUCTIONS WITH PT, VERBALIZED UNDERSTANDING. PT DENIES ANYTHING FURTHER AT THIS TIME.
--- NOTE | 2019-05-03 09:08 | MORECARE ---
CASE MANAGEMENT DISCHARGE SUMMARY PATIENT: ANGEL RAI UNIT: [id number] ADM DATE: 04/29/19 AGE: 78 : 38 SEX: M ROOM/BED: D.2233 AUTHOR: VANI ROJO PHYSICIAN: REFERRING PHYSICIAN: CELESTE BETANCOURT MD DATE OF SERVICE: 05/03/19 Discharge Plan Patient Name: ANGEL RAI Facility: [facility]:[place] : 1940 Planned Disposition: Inpatient Rehab Anticipated Discharge Date: 05/01/19 Discharge Date: 05/01/2019 Expected LOS: 2 Initial Reviewer: [email or web address] Initial Review Date: 05/01/2019 Generated: 05/03/19 10:08 am Comments DCP- Discharge Planning Updated by [email or web address]: Dayana Cantor on 05/01/19 11:[address] Patient Name: ANGEL RAI Admission Status: Elective Accout number: [id number] Admission Date: 04-29-2019 : 1940 Admission Diagnosis: Attending: CELESTE BETANCOURT Current LOS: 2 Anticipated DC Date: 05-01-2019 Planned Disposition: Inpatient Rehab Primary Insurance: MEDICARE A & B Discharge Planning Comments: Inpatient rehab at [facility] will accept back today, patient is in agreement to discharge to inpatient rehab. Plastic Technician: Dayana Cantor Last DP export: 05/01/19 12:00 p Patient Name: ANGEL RAI Page [phone] at 0908 All edits/amendments must be made on the electronic document DICTATION DATE: 05/03/19 09 HIDE AND SKIN PROCESSING WORKER: ADRIANA 05/03/19 09 RPT#: [id number] DC DATE:05/01/19 STATUS: DIS IN [facility] [address] [place] [address] END OF REPORT
== END 2019-05-01 16:53 | DRG 389 ==
LOC: D.MS 16:29
PROVIDERS: ADMIT Surgery; ATTEND Surgery
PROC: 0DJD8ZZ Inspection of Lower Intestinal Tract, Via Natural or Artificial Opening Endoscopic (ICD-10-PCS; principal; 2019-04-30 06:38)
DX: K56.7 Ileus, unspecified (principal); A04.72 Enterocolitis due to Clostridium difficile, not specified as recurrent; E87.8 Other disorders of electrolyte and fluid balance, not elsewhere classified

== ENCOUNTER → 2020-01-16 13:46 | Outpatient (CLI) | payer MEDICARE, OTHER ==
[2019-04-29 23:26] VITALS: BMI 39.1
[2020-01-16 14:42] LABS: BILIRUBIN NEGATIVE (NEGATIVE); GLUCOSE NEGATIVE (NEGATIVE); KETONE NEGATIVE (NEGATIVE); NITRITE NEGATIVE (NEGATIVE); UROBILINOGEN NORMAL (NORMAL); WHITE CELLS - URINE >50 /hpf (NEGATIVE)
[2020-01-16 14:43] LABS: BACTERIA MANY /hpf (NEGATIVE); EPITHELIAL CELLS NSEEN /hpf (0-5)
[2020-01-16 14:44] LABS: HYALINE CAST 0-5 /lpf (NONE SEEN)
== END | disposition home or self-care (01) ==
LOC: D.LABREF 13:46
PROVIDERS: ATTEND Family Medicine
DX: N39.0 Urinary tract infection, site not specified (principal)

== ENCOUNTER → 2020-01-17 17:15 | Outpatient (CLI) | payer MEDICARE, OTHER ==
[2019-04-29 23:26] VITALS: BMI 39.1
[2020-01-17 20:28] LABS: BILIRUBIN NEGATIVE (NEGATIVE); GLUCOSE NEGATIVE (NEGATIVE); KETONE NEGATIVE (NEGATIVE); NITRITE NEGATIVE (NEGATIVE); SPECIFIC GRAVITY 1.015 (1.005-1.020); UROBILINOGEN NORMAL (NORMAL)
[2020-01-17 20:29] LABS: BACTERIA MANY /hpf (NEGATIVE); RED CELLS - URINE 0-5 /hpf (0-5); WHITE CELLS - URINE 25-50 /hpf (NEGATIVE)
== END | disposition home or self-care (01) ==
LOC: D.LABREF 17:15
PROVIDERS: ATTEND Family Medicine
DX: N39.0 Urinary tract infection, site not specified (principal); N18.3 Chronic kidney disease, stage 3 (moderate)